=== PATIENT | female | born 1960 | race Caucasian/White ===

== ENCOUNTER 2016-07-27 07:32 | Emergency (ER) | payer BC ==
[2016-07-27 07:41] VITALS: BP 164/82
--- NOTE | 2016-07-27 08:03 | EDM.PDOC ---
ED HPI Trauma - General Chief Complaint: Upper Extremity Injury/Pain Stated Complaint: SHOULDER PAIN CHEST PAIN Time Seen by Provider: 07/27/16 07:58 Source: Reports: Patient, Family (spouse) History Limitations: Reports: No limitations - History of Present Illness INITIAL COMMENTS - FREE TEXT/NARRATIVE: 56-year-old woman presents the ED with diffuse onset of left andriy-chest pains. They are sharp and stabbing pleuritic in nature primarily felt under the breasts and in the left upper anterior shoulder upper anterior chest. No known injuries or recent falls or strains. Hurts to breathe deeply with every breath. Was in [place] last long drive. No history of blood clots in legs. No cough no sputum production. Pain in the left shoulder radiates in the medial aspect of the arm the biceps is to be should to the elbow actually down to her wrist the median nerve distribution. Pain is constant. It was present more this morning after she woke up it was because when she went to bed last night. She has fibromyalgia syndrome and takes meloxicam for trigger point relief daily. Otherwise has a history of hypertension with no recent medication changes. Symptom Onset Date: 07/27/16 Symptom Onset Time: 07:00 Occurred When: this morning Occurred Where: home Method of Injury: unknown Severity: moderate Pain/Injury Location: Reports: chest, upper extremity, left (Primarily the anterior aspect of the shoulder and then down the medial aspect or midline of her on the biceps distribution.) Associated Symptoms: Reports: no other symptoms Allergies/ADRs: Allergies Iodinated Contrast Media - Oral and Allergy (Unknown, Verified 09/24/13 01:28) UNKOWN kiwi Allergy (Verified 07/27/16 07:41) Rash shellfish derived Allergy (Verified 07/27/16 07:41) Rash Home Medications: Ambulatory Orders John. 1 tab PO DAILY 01/26/14 [Confirmed 07/27/16] Bystolic. 5 mg PO DAILY 01/26/14 [Confirmed 07/27/16] Fluoxetine. 60 mg PO DAILY 01/26/14 [Confirmed 07/27/16] Meloxicam. 15 mg PO DAILY 01/26/14 [Confirmed 07/27/16] Zyrtec. 10 mg PO DAILY 01/26/14 [Confirmed 07/27/16] Cholecalciferol (Vitamin D3) [Vitamin D] 5,000 unit PO ASDIRECTED 07/27/16 [ Confirmed 07/27/16] Doxycycline [Vibramycin] 100 mg PO Q12HR #14 cap 07/27/16 Levothyroxine 112 mcg PO ACBREAKFAST 07/27/16 [Confirmed 07/27/16] Past Medical History HEENT History: Reports: Impaired vision Other HEENT History: glasses Cardiovascular History: Reports: Hypertension Respiratory History: Reports: Asthma Musculoskeletal History: Reports: Fracture Other Musculoskeletal History: left femur Psychiatric History: Reports: Depression Endocrine/Metabolic History: Reports: Hypothyroidism - Past Surgical History Female Surgical History: Reports: Hysterectomy Social & Family History - Family History Family Medical History: Noncontributory - Tobacco Use Smoking Status *Q: Never Smoker Second Hand Smoke Exposure: No - Caffeine Use Caffeine Use: Reports: None - Alcohol Use Days Per Week of Alcohol Use: 0 - Recreational Drug Use Recreational Drug Use: No - Living Situation & Occupation Living situation: Reports: Occupation: unemployed Review of Systems - Review of Systems Review Of Systems: See Below Constitutional: Reports: no symptoms Eyes: Reports: no symptoms Ears: Reports: no symptoms Nose: Reports: no symptoms Mouth/Throat: Reports: no symptoms Respiratory: Reports: Shortness of Breath, Pleuritic Chest Pain. Denies: Wheezing, Cough, Sputum (Left upper left lower chest.), Hemoptysis, Other Cardiovascular: Reports: chest pain, lightheadedness (Is lightheaded this morning). Denies: edema (See history present), irregular heart rate GI/Abdominal: Reports: No symptoms Genitourinary: Reports: no symptoms Musculoskeletal: Reports: muscle pain (Diffuse muscle pain with multiple trigger points) Skin: Reports: no symptoms (. Has been labeled with fibromyalgia syndrome.) Neurological: Reports: No Symptoms Trauma Exam - Physical Exam Exam: See Below Exam Limited By: No limitations General Appearance: Reports: alert, WD/WN, no apparent distress Head: Reports: atraumatic, normocephalic Eyes: bilateral eye: normal inspection Throat/Mouth: Reports: Normal lips, Normal teeth, Normal gums, Normal oropharynx Neck: Reports: non-tender, full range of motion, normal alignment, normal inspection, paraspinous muscle tender (Left side.), other (Tenderness along the distribution of the left trapezius muscle trigger points identified in the upper neck and paraspinal musculature.) Respiratory Exam: Reports: no respiratory distress, lungs clear, normal breath sounds, no accessory muscle use, chest non-tender. Denies: respiratory distress , decreased breath sounds, crackles, rales, rhonchi, wheezing, stridor, pleural rub, accessory muscle use, retractions, splinting GI/Abdominal: Reports: normal bowel sounds, soft, non tender, no organomegaly, no distention Extremities: Reports: no evidence of injury, non-tender, no pedal edema, pelvis stable Neurologic: Reports: no motor/sensory deficits, oriented x 3 Skin: Reports: Normal color, Warm/dry - [place] Coma Score Best Eye Response ([place]): (4) open spontaneously Best Verbal Response (Dinesh): (5) oriented Best Motor Response (Dinesh): (6) obeys commands EKG INTERPRETATION EKG Date: 07/27/16 Time: 08:05 Rhythm: NSR Rate (beats/min): 58 [place]: normal P-wave: enlarged (Left atrial hypertrophy pattern.) QRS: other (Borderline prolonged repolarization abnormality.) ST-T: depressed (Very delayed repolarization abnormality versus ST segment depression.) QT: prolonged (Markedly prolonged at 587.) Course - Vital Signs Last Recorded V/S: Last Vital Signs Temp 36.6 C 07/27/16 07:37 Pulse 63 07/27/16 07:37 Resp 16 07/27/16 07:37 BP 164/82 H 07/27/16 07:37 Pulse Ox 96 07/27/16 07:37 - Orders/Labs/Meds Orders: Active Orders 24 hr Category Date Time Status EKG Documentation Completion [RC] STAT Care 07/27/16 07:59 Active Chest 1V Frontal [CR] Stat Exams 07/27/16 07:58 Taken Ketorolac [Toradol] Med 07/27/16 08:15 Active 30 mg IVPUSH ONETIME Sodium Chloride 0.9% [Normal Saline] 1,000 ml Med 07/27/16 08:15 Active IV ASDIRECTED Medication Orders Sodium Chloride (Normal Saline) 1,000 mls @ 100 mls/hr IV ASDIRECTED DRAKE Last Admin: 07/27/16 08:15 Dose: 100 mls/hr Ketorolac Tromethamine (Toradol) 30 mg IVPUSH ONETIME DRAKE Last Admin: 07/27/16 08:15 Dose: 30 mg Labs: Laboratory Tests 07/27/16 07/27/16 07/27/16 Range/Units 08:15 08:15 08:15 WBC 10.40 H (3.98-10.04) K/mm3 RBC 5.59 H (3.98-5.22) M/mm3 Hgb 15.2 (11.2-15.7) gm/L Hct 46.7 H (34.1-44.9) % MCV 83.5 (79.4-94.8) fl MCH 27.2 (25.6-32.2) pg MCHC 32.5 (32.2-35.5) g/dl RDW Std Deviation 44.1 (36.4-46.3) fL Plt Count 263 (182-369) K/mm3 MPV 9.9 (9.4-12.3) fl Neutrophils % (Manual) 63 H (40-60) % Band Neutrophils % 0 (0-10) % Lymphocytes % (Manual) 22 (20-40) % Atypical Lymphs % 0 % Monocytes % (Manual) 8 (2-10) % Eosinophils % (Manual) 7 H (0.7-5.8) % Basophils % (Manual) 0 L (0.1-1.2) Platelet Estimate Adequate RBC Morph Comment Normal PT 10.1 (8.0-13.0) SECONDS INR 0.93 D-Dimer, Quantitative (0.19-0.59) mg/L Sodium 141 (136-145) mEq/L Potassium 3.9 (3.5-5.1) mEq/L Chloride 105 (98-107) mEq/L Carbon Dioxide 28 (21-32) mEq/L Anion Gap 11.9 (5-15) BUN 14 (7-18) mg/dL Creatinine 0.8 (0.55-1.02) mg/dL Est Cr Clr Drug Dosing 68.61 mL/min Estimated GFR (MDRD) > 60 (>60) mL/min BUN/Creatinine Ratio 17.5 (14-18) Glucose 114 H (74-106) mg/dL Calcium 9.4 (8.5-10.1) mg/dL Total Bilirubin 0.7 (0.2-1.0) mg/dL AST 17 (15-37) U/L ALT 31 (14-59) U/L Alkaline Phosphatase 114 (46-116) U/L CK-MB (CK-2) < 0.5 (0-3.6) ng/ml Troponin I 0.018 (0.00-0.056) ng/mL C-Reactive Protein 2.9 H* (<1.0) mg/dL Total Protein 8.2 (6.4-8.2) g/dl Albumin 4.0 (3.4-5.0) g/dl Globulin 4.2 gm/dL Albumin/Globulin Ratio 1.0 (1-2) 07/27/16 Range/Units 08:15 WBC (3.98-10.04) K/mm3 RBC (3.98-5.22) M/mm3 Hgb (11.2-15.7) gm/L Hct (34.1-44.9) % MCV (79.4-94.8) fl MCH (25.6-32.2) pg MCHC (32.2-35.5) g/dl RDW Std Deviation (36.4-46.3) fL Plt Count (182-369) K/mm3 MPV (9.4-12.3) fl Neutrophils % (Manual) (40-60) % Band Neutrophils % (0-10) % Lymphocytes % (Manual) (20-40) % Atypical Lymphs % % Monocytes % (Manual) (2-10) % Eosinophils % (Manual) (0.7-5.8) % Basophils % (Manual) (0.1-1.2) Platelet Estimate RBC Morph Comment PT (8.0-13.0) SECONDS INR D-Dimer, Quantitative 0.43 (0.19-0.59) mg/L Sodium (136-145) mEq/L Potassium (3.5-5.1) mEq/L Chloride (98-107) mEq/L Carbon Dioxide (21-32) mEq/L Anion Gap (5-15) BUN (7-18) mg/dL Creatinine (0.55-1.02) mg/dL Est Cr Clr Drug Dosing mL/min Estimated GFR (MDRD) (>60) mL/min BUN/Creatinine Ratio (14-18) Glucose (74-106) mg/dL Calcium (8.5-10.1) mg/dL Total Bilirubin (0.2-1.0) mg/dL AST (15-37) U/L ALT (14-59) U/L Alkaline Phosphatase (46-116) U/L CK-MB (CK-2) (0-3.6) ng/ml Troponin I (0.00-0.056) ng/mL C-Reactive Protein (<1.0) mg/dL Total Protein (6.4-8.2) g/dl Albumin (3.4-5.0) g/dl Globulin gm/dL Albumin/Globulin Ratio (1-2) Meds: Medications Generic Name Dose Route Start Last Admin Trade Name Parrish PRN Reason Stop Dose Admin Sodium Chloride 1,000 mls @ 100 mls/hr 07/27/16 08:15 07/27/16 08:15 Normal Saline IV 100 mls/hr ASDIRECTED DRAKE Administration Ketorolac Tromethamine 30 mg 07/27/16 08:15 07/27/16 08:15 Toradol IVPUSH 30 mg ONETIME DRAKE Administration - Radiology Interpretation Free Text/Narrative:: 56-year-old female brought to the ED for evaluation of diffuse left-sided pleuritic type chest pain. Trypsin stabbing and worsens with deep deep every deep breath. No associated cough or sputum production. Pain radiates up to the left anterior shoulder medial aspect of her left arm distribution of the biceps down towards the left wrist. There is no restricted range of motion of the left shoulder it does not aggravate the pain. He is referred. Her neck has some discomfort with movement of blunt chest pain is new. Plan CBC CMP ECG chest x- ray one view D. dimer and in cardiac markers CRP to be done. - Re-Assessments/Exams Free Text/Narrative Re-Assessment/Exam: 07/27/16 09:13 chest x-ray shows infiltrates both lower lobes more of a fibrotic -type pattern. There is evidence of increased glenohumeral humeral space suggesting rotator cuff disease. Her labs reveal an elevated white count at 10.40 with 63% neutrophils no bands hemoglobin 15.2 platelets normal d-dimer was 0.43. Coags normal CRP elevated at 2.9 troponin is 0.018. Her pain is strongly pleuritic and likely viral in origin. However going to cover with antibiotic duct 6100 mg twice daily for 8 days due to the elevated CRP and white count. Departure - Departure Time of Disposition: 09:15 Disposition: Home, Self-Care 01 Condition: fair Clinical Impression: Pleurisy Prescriptions: Doxycycline [Vibramycin] 100 mg PO Q12HR #14 cap Forms: ED Department Discharge Additional Instructions: Evaluation in the emergency department today in regards to development of pleuritic left anterior chest pains both lower and upper ED and to the left arm and shoulder. X-rays suggest a viral pattern of inflammation in the lower lobes. White count however was mildly elevated at 10.40 as is the CRP at 2.9. This suggests underlying mild infective process. The blood test were negative for any heart related illness and no evidence of blood clots in the lung. D- dimer was 0.43. Treatment is suggested the anti-inflammatory Aleve 2 tablets every 8 hours or Motrin 600 mg every 6 hours to relieve in formation and pain. Suggest use of antibiotic toxic Milligrams twice daily for 7 days to prevent any pneumonia from occurring in the left lung. Expect gradual improvement over the next 5-7 days. Return to medical care sooner if any other problems occur. - My Orders Last 24 Hours: My Active Orders 07/27/16 07:58 Chest 1V Frontal [CR] Stat 07/27/16 07:59 EKG Documentation Completion [RC] STAT 07/27/16 08:15 Ketorolac [Toradol] 30 mg IVPUSH ONETIME Sodium Chloride 0.9% [Normal Saline] 1,000 ml IV ASDIRECTED - Assessment/Plan Last 24 Hours: My Active Orders 07/27/16 07:58 Chest 1V Frontal [CR] Stat 07/27/16 07:59 EKG Documentation Completion [RC] STAT 07/27/16 08:15 Ketorolac [Toradol] 30 mg IVPUSH ONETIME Sodium Chloride 0.9% [Normal Saline] 1,000 ml IV ASDIRECTED
[2016-07-27] MEDS ORDERED: Sodium Chloride 0.9% 1,000 ML IV SCH (08:15)
[2016-07-27] MEDS ORDERED: Ketorolac 30 MG/ML SDV IVPUSH SCH (08:15)
--- NOTE | 2016-07-27 09:55 | CR ---
Chest: Portable view of the chest was obtained. Comparison: No previous study. Heart size and mediastinum are within normal limits. Lungs are clear. No pleural thickening is seen. No discrete bony abnormality is identified. No pneumothorax is seen. Impression: 1. Nothing acute is identified on portable chest x-ray. Diagnostic code #1
== END 2016-07-27 09:22 | disposition home or self-care (01) ==
LOC: JD.ED 07:32
DX: R09.1 Pleurisy (principal); Z91.041 Radiographic dye allergy status; Z91.013 Allergy to seafood; Z91.018 Allergy to other foods; Z79.899 Other long term (current) drug therapy; I10 Essential (primary) hypertension; J45.909 Unspecified asthma, uncomplicated; E03.9 Hypothyroidism, unspecified; F32.9 Major depressive disorder, single episode, unspecified
CPT/HCPCS: 36415; 71010; 80053; 82553; 84484; 85025; 85379; 85610; 86140; 93005; 96361; 96374; 99284; J1885; J7040

== ENCOUNTER 2016-11-04 17:48 | Emergency (ER) | payer BC ==
[2016-11-04] MEDS ORDERED: Cephalexin 500 MG Cap PO ONE (18:28)
--- NOTE | 2016-11-04 18:34 | EDM.PDOC ---
ED HPI GENERAL MEDICAL PROBLEM - General Chief Complaint: Skin Complaint Stated Complaint: INSECT BITE L LEG Time Seen by Provider: 11/04/16 18:15 Source of Information: Reports: Patient History Limitations: Reports: No Limitations - History of Present Illness INITIAL COMMENTS - FREE TEXT/NARRATIVE: Patient is a 56-year-old female who presents to the ED complaining of a mosquito bite that has become infected located to the left lower leg proximal to the ankle. Patient states on Sunday she was out celebrating the october and suffered a few mosquito bites. States over the course of the week she' s developed increased redness that is well demarcated to the left lower leg. Redness has changed to a deeper red over the past 2 days with more pain associated to it. There is some increased warmth noted. No drainage noted. She has no history of MRSA. Denies itching the affected area. - Related Data Allergies Allergy/AdvReac Type Severity Reaction Status Date / Time Iodinated Contrast- Oral and Allergy Unknown UNKOWN Verified 11/04/16 18:18 IV Dye kiwi Allergy Rash Verified 11/04/16 18:18 shellfish derived Allergy Rash Verified 11/04/16 18:18 Home Meds: Home Meds John. 1 tab PO DAILY 01/26/14 [History] Bystolic. 5 mg PO DAILY 01/26/14 [History] Fluoxetine. 60 mg PO DAILY 01/26/14 [History] Meloxicam. 15 mg PO DAILY 01/26/14 [History] Zyrtec. 10 mg PO DAILY 01/26/14 [History] Cholecalciferol (Vitamin D3) [Vitamin D] 5,000 unit PO ASDIRECTED 07/27/16 [ History] Doxycycline [Vibramycin] 100 mg PO Q12HR #14 cap 07/27/16 [Rx] Levothyroxine 112 mcg PO ACBREAKFAST 07/27/16 [History] Cephalexin [Keflex] 500 mg PO Q6HR #28 cap 11/04/16 [Rx] Past Medical History HEENT History: Reports: Impaired Vision Other HEENT History: glasses Cardiovascular History: Reports: Hypertension Respiratory History: Reports: Asthma Musculoskeletal History: Reports: Fracture Other Musculoskeletal History: left femur Psychiatric History: Reports: Depression Endocrine/Metabolic History: Reports: Hypothyroidism - Past Surgical History Female Surgical History: Reports: Hysterectomy Social & Family History - Family History Family Medical History: Noncontributory - Tobacco Use Smoking Status *Q: Never Smoker Second Hand Smoke Exposure: No - Caffeine Use Caffeine Use: Reports: Coffee, Soda - Alcohol Use Days Per Week of Alcohol Use: 0 - Recreational Drug Use Recreational Drug Use: No - Living Situation & Occupation Living situation: Reports: Occupation: Unemployed ED ROS GENERAL - Review of Systems Review Of Systems: See Below Constitutional: Denies: Fever, Chills, Malaise, Fatigue, Decreased Appetite Respiratory: Reports: No Symptoms Cardiovascular: Reports: No Symptoms GI/Abdominal: Reports: No Symptoms Musculoskeletal: Reports: Leg Pain (left lower leg: medial aspect of lower leg proximal to the ankle. Area of redness and increased warmth. Mild pain present. ) Skin: Reports: Erythema, Lesions ED EXAM, SKIN/RASH Exam: See Below Exam Limited By: No Limitations General Appearance: Alert, WD/WN, No Apparent Distress Ears: Hearing Grossly Normal Nose: Normal Inspection Throat/Mouth: Normal Voice, No Airway Compromise Neck: Normal Inspection, Supple Respiratory/Chest: No Respiratory Distress, No Accessory Muscle Use Neurological: Alert, Oriented, CN II-XII Intact, Normal Cognition Psychiatric: Normal Affect, Normal Mood Skin: Intact, Normal Color, Other (Left lower leg proximal to the ankle: 6cm x 3 cm area of sharply demarcated redness. No open sores present. Site from previous mosquito bite. ) Course - Vital Signs Last Recorded V/S: Last Vital Signs Temp 97.8 F 11/04/16 18:15 Pulse 78 11/04/16 18:15 Resp 18 11/04/16 18:15 BP 154/73 H 11/04/16 18:15 Pulse Ox 100 11/04/16 18:15 - Orders/Labs/Meds Orders: Active Orders 24 hr Category Date Time Status Cephalexin [Keflex] Med 11/04/16 18:28 Once 500 mg PO ONETIME ONE - Re-Assessments/Exams Free Text/Narrative Re-Assessment/Exam: Ordered keflex 500mg PO. Will discharge patient home with instructions as documented. Departure - Departure Time of Disposition: 18:31 Disposition: Home, Self-Care 01 Condition: Good Clinical Impression: Mosquito bite Qualifiers: Encounter type: initial encounter Qualified Code(s): W57.XXXA - Bitten or stung by nonvenomous insect and other nonvenomous arthropods, initial encounter Cellulitis Qualifiers: Site of cellulitis: extremity Site of cellulitis of extremity: lower extremity Laterality: left Qualified Code(s): L03.116 - Cellulitis of left lower limb - Discharge Information Prescriptions: Cephalexin [Keflex] 500 mg PO Q6HR #28 cap Referrals: Estrella Rosas, [employer]OR [Primary Care Provider] - Forms: ED Department Discharge Additional Instructions: Take the full course of keflex as prescribed. Refrain from itching the site. Symptoms should improve over the next 24 to 48 hrs. Apply warm compresses to the affected area 4 times daily, 30 minutes in duration. Return to the E.D. if you develop increased redness, swelling, pain, n/v, redness streaking up your leg, or fever/chills. - My Orders Last 24 Hours: My Active Orders 11/04/16 18:28 Cephalexin [Keflex] 500 mg PO ONETIME ONE - Assessment/Plan Last 24 Hours: My Active Orders 11/04/16 18:28 Cephalexin [Keflex] 500 mg PO ONETIME ONE
[2016-11-04 18:56] VITALS: BP 139/76
== END 2016-11-04 18:50 | disposition home or self-care (01) ==
LOC: JD.ED 17:48
DX: S80.862A Insect bite (nonvenomous), left lower leg, initial encounter (principal); L03.116 Cellulitis of left lower limb; I10 Essential (primary) hypertension; J45.909 Unspecified asthma, uncomplicated; F32.9 Major depressive disorder, single episode, unspecified; E03.9 Hypothyroidism, unspecified; Z90.710 Acquired absence of both cervix and uterus; Z91.041 Radiographic dye allergy status; Z91.013 Allergy to seafood; Z91.018 Allergy to other foods; Z79.899 Other long term (current) drug therapy; W57.XXXA Bitten or stung by nonvenomous insect and other nonvenomous arthropods, initial encounter
CPT/HCPCS: 99283; A9270

== ENCOUNTER 2018-07-17 20:30 | Emergency (ER) | payer BC ==
[2018-07-17 20:59] VITALS: BP 134/74
--- NOTE | 2018-07-17 21:36 | EDM.PDOC ---
ED HPI GENERAL MEDICAL PROBLEM - General Chief Complaint: Eye Problems Stated Complaint: RIGHT EYE SORE W/GREEN MATTER Time Seen by Provider: 07/17/18 21:02 Source of Information: Reports: Patient, RN Notes Reviewed History Limitations: Reports: No Limitations - History of Present Illness INITIAL COMMENTS - FREE TEXT/NARRATIVE: The patient states that she developed right upper eyelid pain - a bruised sensation - this afternoon. She noticed a greenish discharge in her right eye this evening. Her eye does not itch. She reports that she has had sinus congestion for the past 4 days. No recent fever. The patient states that she has had "pinkeye" in the past, and that this is probably different than that. The patient states that she has been taking Mucinex to treat her sinus congestion, and that she takes Zyrtec every day to treat allergic rhinitis. The patient's PCP is Estrella Rosas. Her vaccinations are up-to-date, including an influenza vaccine this season. Right Eye Pain Score (Numeric/FACES): 2 - Related Data Allergies Allergy/AdvReac Type Severity Reaction Status Date / Time Iodinated Contrast- Oral and Allergy Unknown UNKOWN Verified 11/04/16 18:18 IV Dye kiwi Allergy Rash Verified 11/04/16 18:18 shellfish derived Allergy Rash Verified 11/04/16 18:18 Home Meds: Home Meds Cetirizine [ZyrTEC] 10 mg PO DAILY 07/17/18 [History] Diclofenac Sodium [Voltaren] 75 mg PO BID 07/17/18 [History] FLUoxetine [PROzac] 60 mg PO DAILY 07/17/18 [History] Levothyroxine 112 mcg PO DAILY 07/17/18 [History] Nebivolol [Bystolic] 5 mg PO DAILY 07/17/18 [History] amLODIPine Besylate/Benazepril [Amlodipine-Benazepril 5-20 MG] 5 - 20 mg PO DAILY 07/17/18 [History] Past Medical History HEENT History: Reports: Cataract (steroid-induced), Impaired Vision Other HEENT History: glasses Cardiovascular History: Reports: Hypertension Respiratory History: Reports: Asthma Genitourinary History: Reports: Renal Calculus Musculoskeletal History: Reports: Fracture (left femur), Osteoarthritis (knees) Psychiatric History: Reports: Depression, Other (See Below) (Fibromyalgia) Endocrine/Metabolic History: Reports: Hypothyroidism, Obesity/BMI 30+ - Past Surgical History HEENT Surgical History: Reports: Naso-Sinus Surgery, Oral Surgery (Dental implants) GI Surgical History: Reports: Appendectomy Female Surgical History: Reports: Hysterectomy (partial) Musculoskeletal Surgical History: Reports: ORIF (left femur, with hardware subsequently removed) Dermatological Surgical History: Reports: Other (See Below) (Right knee scar revision) Social & Family History - Family History Family Medical History: Noncontributory - Tobacco Use Smoking Status *Q: Never Smoker - Caffeine Use Caffeine Use: Reports: Coffee, Tea - Alcohol Use Alcohol Use History: Yes Alcohol Use Frequency: Rarely - Recreational Drug Use Recreational Drug Use: No - Living Situation & Occupation Living situation: Reports: , with Spouse 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 ED EXAM, GENERAL - Physical Exam Exam: See Below Exam Limited By: No Limitations General Appearance: Alert, WD/WN, No Apparent Distress Eye Exam: Bilateral Eye: Conjunctival Injection (Mild, Rt slightly greater than left), EOMI, Other (Small amount of greenish mucus noted at the medial aspects of both eyes) Ears: Normal External Exam, Normal Canal, Hearing Grossly Normal, Normal TMs Nose: Normal Inspection, Normal Mucosa, No Blood Throat/Mouth: Normal Inspection, Normal Lips, Normal Teeth, Normal Gums, Normal Oropharynx, Normal Voice, No Airway Compromise Head: Atraumatic, Normocephalic, Sinus Tenderness (right frontal and right maxillary), Other (No facial erythema). No: Facial Swelling Neck: Normal Inspection, Supple, Non-Tender, Full Range of Motion. No: Lymphadenopathy (L), Lymphadenopathy (R) Respiratory/Chest: No Respiratory Distress, Lungs Clear, Normal Breath Sounds, No Accessory Muscle Use Cardiovascular: Normal Peripheral Pulses, Regular Rate, Rhythm, No Gallop, No JVD, No Murmur, No Rub Peripheral Pulses: 4+: Radial (L), Radial (R) GI/Abdominal: Normal Bowel Sounds, Soft, Non-Tender, No Organomegaly, No Distention, No Abnormal Bruit, No Mass, Other (Obese) (Female) Exam: Deferred Rectal (Female) Exam: Deferred Back Exam: Normal Inspection, Full Range of Motion, NT Extremities: Normal Inspection, Normal Range of Motion, No Pedal Edema, Normal Capillary Refill Neurological: Alert, Oriented, Normal Cognition, No Motor/Sensory Deficits Psychiatric: Normal Affect Skin Exam: Warm, Dry, Intact, Normal Color, No Rash Course - Vital Signs Last Recorded V/S: Last Vital Signs Temp 36.3 C 07/17/18 20:57 Pulse 62 07/17/18 20:57 Resp 20 07/17/18 20:57 BP 134/74 07/17/18 20:57 Pulse Ox 97 07/17/18 20:57 - Re-Assessments/Exams Free Text/Narrative Re-Assessment/Exam: 07/17/18 21:32 I do not see a specific problem with the patient's right eye, rather, the patient appears to have a viral URI with sinusitis, and a small amount of nasal mucus traveling up both of the patient's nasolacrimal ducts into her eyes, causing local irritation. I am recommending [id number] oxymetazoline nasal spray as a decongestant. Departure - Departure Time of Disposition: 21:33 Disposition: Home, Self-Care 01 Condition: Good Clinical Impression: Viral URI, Irritation of both eyes - Discharge Information *PRESCRIPTION DRUG MONITORING PROGRAM REVIEWED*: Not Applicable *COPY OF PRESCRIPTION DRUG MONITORING REPORT IN PATIENT MICHELLE: Not Applicable Instructions: Upper Respiratory Infection, Adult, [id number] Referrals: Estrella Rosas BOW TACKER [Primary Care Provider] - Forms: ED Department Discharge Additional Instructions: You were seen in the emergency room for right eye pain and greenish discharge associated with 4 days of sinus congestion. Based on your history and physical examination, you are most likely suffering from a viral URI, also known as a common cold. You do not have an eye infection. Unfortunately, there are no medicines to treat a viral URI - it will have to run its course. We recommend that you purchase [id number] oxymetazoline nasal spray in a "pump mist" bottle, not a squeeze bottle. Alvin one spray of oxymetazoline up each nostril, wait 5 minutes, then spray a second spray of oxymetazoline up each nostril. Repeat every 12 hours, to a maximum of 5 days. We recommend that you discontinue taking the Mucinex, as it is been shown to be of no benefit, but does have side effects. You may continue to take Zyrtec to treat your allergic rhinitis. Follow-up with your PCP, Estrella Rosas, as needed. If any other problems, please do not hesitate to return to the ER.
== END 2018-07-17 21:43 | disposition home or self-care (01) ==
LOC: JD.ED 20:30
DX: J06.9 Acute upper respiratory infection, unspecified (principal); H57.89 Other specified disorders of eye and adnexa; I10 Essential (primary) hypertension; J45.909 Unspecified asthma, uncomplicated; E03.9 Hypothyroidism, unspecified; Z79.899 Other long term (current) drug therapy; Z91.041 Radiographic dye allergy status; Z91.018 Allergy to other foods; Z91.013 Allergy to seafood
CPT/HCPCS: 99282

== ENCOUNTER 2018-10-14 21:37 | Emergency (ER) | payer BC ==
[2018-10-14 22:00] VITALS: BP 144/88
--- NOTE | 2018-10-14 23:44 | EDM.PDOC ---
ED HPI GENERAL MEDICAL PROBLEM - General Chief Complaint: Respiratory Problem Stated Complaint: RT ARM PAIN SOB LIGHT HEADED Time Seen by Provider: 10/14/18 21:58 Source of Information: Reports: Patient, Family History Limitations: Reports: No Limitations - History of Present Illness INITIAL COMMENTS - FREE TEXT/NARRATIVE: The patient presents with right arm pain. This has been going on for about 4 days to about 1 week. She did not injure her arm in any way. She says at times it is hard to get comfortable. It will hurt in the upper arm but now it is in the lower arm. She has no neck pain. She had some shortness of breath when going up stairs today at the [employer]. She does not usually have trouble with steps. She developed no chest pain. She has no fever, chills, cough, congestion, runny nose, abdominal pain, nausea or vomiting. She has no history of heart disease. She does not smoke. Onset: Gradual Duration: Week(s): Location: Reports: Upper Extremity, Right (arm) Quality: Reports: Sharp Severity: Moderate Improves with: Reports: None Worsens with: Reports: None Associated Symptoms: Reports: Shortness of Breath (Going up the stairs tonight) . Denies: Chest Pain, Cough, Fever/Chills, Headaches, Nausea/Vomiting Right Arm Pain Score (Numeric/FACES): 4 - Related Data Allergies Allergy/AdvReac Type Severity Reaction Status Date / Time Iodinated Contrast- Oral and Allergy Unknown UNKOWN Verified 10/14/18 22:01 IV Dye kiwi Allergy Rash Verified 10/14/18 22:01 shellfish derived Allergy Rash Verified 10/14/18 22:01 Home Meds: Home Meds Cetirizine [ZyrTEC] 10 mg PO DAILY 07/17/18 [History] Diclofenac Sodium [Voltaren] 75 mg PO BID 07/17/18 [History] FLUoxetine [PROzac] 60 mg PO DAILY 07/17/18 [History] Levothyroxine 112 mcg PO DAILY 07/17/18 [History] Nebivolol [Bystolic] 5 mg PO DAILY 07/17/18 [History] amLODIPine Besylate/Benazepril [Amlodipine-Benazepril 5-20 MG] 5 - 20 mg PO DAILY 07/17/18 [History] Hydrocodone/Acetaminophen [Hydrocodon-Acetaminophen 5-325] 1 - 2 each PO Q6HR PRN #10 tablet 10/14/18 [Rx] Past Medical History HEENT History: Reports: Cataract, Impaired Vision Other HEENT History: glasses Cardiovascular History: Reports: Hypertension Respiratory History: Reports: Asthma Genitourinary History: Reports: Renal Calculus 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: Musculoskeletal History: Reports: Fracture, Osteoarthritis Other Musculoskeletal History: left femur Psychiatric History: Reports: Depression, Other (See Below) Endocrine/Metabolic History: Reports: Hypothyroidism, Obesity/BMI 30+ - Past Surgical History HEENT Surgical History: Reports: Naso-Sinus Surgery, Oral Surgery GI Surgical History: Reports: Appendectomy Female Surgical History: Reports: Hysterectomy Musculoskeletal Surgical History: Reports: ORIF Dermatological Surgical History: Reports: Other (See Below) Social & Family History - Family History Family Medical History: Noncontributory - Tobacco Use Smoking Status *Q: Never Smoker Second Hand Smoke Exposure: No - Caffeine Use Caffeine Use: Reports: Coffee - Recreational Drug Use Recreational Drug Use: No - Living Situation & Occupation Living situation: Reports: , with Spouse 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) ED ROS GENERAL - Review of Systems Review Of Systems: See Below Constitutional: Reports: No Symptoms HEENT: Reports: No Symptoms Respiratory: Reports: Shortness of Breath Cardiovascular: Reports: No Symptoms Endocrine: Reports: No Symptoms GI/Abdominal: Reports: No Symptoms : Reports: No Symptoms Musculoskeletal: Reports: Other (Right arm pain) Skin: Reports: No Symptoms ED EXAM, GENERAL - Physical Exam Exam: See Below Exam Limited By: No Limitations General Appearance: Alert, No Apparent Distress Ears: Normal External Exam Nose: Normal Inspection Head: Atraumatic, Normocephalic Neck: Normal Inspection, Supple, Non-Tender, Other (The pain in her arm is not made worse by axial loading on her head and flexion to the right) Respiratory/Chest: No Respiratory Distress, Lungs Clear, Normal Breath Sounds Cardiovascular: Regular Rate, Rhythm, No Edema, No Murmur GI/Abdominal: Soft, Non-Tender, No Organomegaly, No Mass Back Exam: Normal Inspection Extremities: Other (No pain upon palpation to her whole arm. Good sensation, strength and pulses in her right arm. She did have some tingling in her fingers with flexion at the wrist and tapping on her medial nerve.) EKG INTERPRETATION EKG Date: 10/14/18 Time: 10:25 Rhythm: NSR Rate (Beats/Min): 65 [place]: LAD-Left [place] Deviation P-Wave: Present QRS: Normal ST-T: Normal QT: Normal EKG Interpretation Comments: LVH Course - Vital Signs Last Recorded V/S: Last Vital Signs Temp 97.9 F 10/14/18 21:59 Pulse 68 10/14/18 21:59 Resp 23 H 10/14/18 21:59 BP 144/88 H 10/14/18 21:59 Pulse Ox 97 10/14/18 21:59 - Orders/Labs/Meds Orders: Active Orders 24 hr Category Date Time Status Cardiac Monitoring [RC] . DIRECTED Care 10/14/18 22:14 Active EKG Documentation Completion [RC] STAT Care 10/14/18 22:15 Active Chest 2V [CR] Stat Exams 10/14/18 22:15 Taken PRO B-TYPE NATRIUR PEPT,BNPPRO [CHEM] Stat Lab 10/14/18 22:30 Received Acetaminophen/HYDROcodone [[place] 325-5 MG] Med 10/14/18 23:55 Once 2 tab PO ONETIME ONE Labs: Laboratory Tests 10/14/18 10/14/18 Range/Units 22:30 22:30 WBC 10.18 H (3.98-10.04) K/mm3 RBC 5.04 (3.98-5.22) M/mm3 Hgb 14.2 (11.2-15.7) gm/L Hct 44.2 (34.1-44.9) % MCV 87.7 (79.4-94.8) fl MCH 28.2 (25.6-32.2) pg MCHC 32.1 L (32.2-35.5) g/dl RDW Std Deviation 46.6 H (36.4-46.3) fL Plt Count 261 (182-369) K/mm3 MPV 9.7 (9.4-12.3) fl Neut % (Auto) 59.6 (34.0-71.1) % Lymph % (Auto) 26.6 (19.3-51.7) % [place] % (Auto) 9.0 (4.7-12.5) % Eos % (Auto) 3.6 (0.7-5.8) Baso % (Auto) 0.9 (0.1-1.2) % Neut # (Auto) 6.06 (1.56-6.13) K/mm3 Lymph # (Auto) 2.71 (1.18-3.74) K/mm3 [place] # (Auto) 0.92 H (0.24-0.36) K/mm3 Eos # (Auto) 0.37 H (0.04-0.36) K/mm3 Baso # (Auto) 0.09 H (0.01-0.08) K/mm3 Sodium 140 (136-145) mEq/L Potassium 3.9 (3.5-5.1) mEq/L Chloride 102 (98-107) mEq/L Carbon Dioxide 29 (21-32) mEq/L Anion Gap 12.9 (5-15) BUN 13 (7-18) mg/dL Creatinine 1.0 (0.55-1.02) mg/dL Est Cr Clr Drug Dosing 53.60 mL/min Estimated GFR (MDRD) 57 (>60) mL/min BUN/Creatinine Ratio 13.0 L (14-18) Glucose 102 (74-106) mg/dL Calcium 9.5 (8.5-10.1) mg/dL Total Bilirubin 0.5 (0.2-1.0) mg/dL AST 23 (15-37) U/L ALT 48 (14-59) U/L Alkaline Phosphatase 114 (46-116) U/L Troponin I < 0.017 (0.00-0.056) ng/mL Total Protein 7.5 (6.4-8.2) g/dl Albumin 3.5 (3.4-5.0) g/dl Globulin 4.0 gm/dL Albumin/Globulin Ratio 0.9 L (1-2) - Re-Assessments/Exams Free Text/Narrative Re-Assessment/Exam: 10/14/18 23:45 I ordered an EKG, CXR and labs. Her EKG shows LVH but nothing acute. Her CXR shows nothing acute. Her WBC was slightly elevated at 10.18. Her CMP looks good. Her troponin is negative. 10/14/18 23:56 I am concerned the pain could be related to carpal tunnel syndrome. She had it when she was years ago. I will have her wear her splints. I will give her a dose of hydrocodone here and a prescription for more. Departure - Departure Time of Disposition: 00:05 Disposition: Home, Self-Care 01 Condition: Good Clinical Impression: Dyspnea on exertion, Right arm pain - Discharge Information *PRESCRIPTION DRUG MONITORING PROGRAM REVIEWED*: No *COPY OF PRESCRIPTION DRUG MONITORING REPORT IN PATIENT MICHELLE: No Prescriptions: Hydrocodone/Acetaminophen [Hydrocodon-Acetaminophen 5-325] 1 - 2 each PO Q6HR PRN #10 tablet PRN Reason: Pain Referrals: Estrella Rosas VACATION PLANNER [Primary Care Provider] - 1 Week Forms: ED Department Discharge Additional Instructions: Try wearing your wrist splint for a week and see if that happens. Sometime carpal tunnel can hurt up your arm. Try motrin or aleve for pain. If that does not help, try the hydrocodone. Follow up with Estrella Rosas in a week. Please return if you are worse. - My Orders Last 24 Hours: My Active Orders 10/14/18 22:14 Cardiac Monitoring [RC] . DIRECTED 10/14/18 22:15 EKG Documentation Completion [RC] STAT Chest 2V [CR] Stat 10/14/18 22:30 PRO B-TYPE NATRIUR PEPT,BNPPRO [CHEM] Stat 10/14/18 23:55 Acetaminophen/HYDROcodone [[place] 325-5 MG] 2 tab PO ONETIME ONE - Assessment/Plan Last 24 Hours: My Active Orders 10/14/18 22:14 Cardiac Monitoring [RC] . DIRECTED 10/14/18 22:15 EKG Documentation Completion [RC] STAT Chest 2V [CR] Stat 10/14/18 22:30 PRO B-TYPE NATRIUR PEPT,BNPPRO [CHEM] Stat 10/14/18 23:55 Acetaminophen/HYDROcodone [[place] 325-5 MG] 2 tab PO ONETIME ONE
[2018-10-14] MEDS ORDERED: Acetaminophen/HYDROcodone 325-5 MG Tab PO ONE (23:55)
--- NOTE | 2018-10-15 07:19 | CR ---
Chest: Two views of the chest were obtained. Comparison: Prior chest x-ray of 09/04/18. Heart size and mediastinum are within normal limits. Lung markings are mildly increased which appear fairly stable from previous exam. No acute parenchymal change is appreciated. Bony structures appear within normal limits for the patient's age. Impression: 1. Nothing acute is appreciated. No significant change from prior chest x-ray is seen. Diagnostic code #2
== END 2018-10-15 00:07 | disposition home or self-care (01) ==
LOC: JD.ED 21:37
DX: R06.00 Dyspnea, unspecified (principal); M79.601 Pain in right arm; I10 Essential (primary) hypertension; J45.909 Unspecified asthma, uncomplicated; E03.9 Hypothyroidism, unspecified; F32.9 Major depressive disorder, single episode, unspecified; Z88.8 Allergy status to other drugs, medicaments and biological substances; Z79.899 Other long term (current) drug therapy; Z91.013 Allergy to seafood
CPT/HCPCS: 36415; 71046; 80053; 83880; 84484; 85025; 93005; 99285; A9270; 93010; 99284

== ENCOUNTER 2019-10-06 06:16 | Inpatient (IN) | payer BC ==
--- NOTE | 2019-10-06 05:41 | PCM.PREANE ---
Preanesthetic Assessment - Anesthesia/Transfusion/Family Hx Anesthesia History: Prior Anesthesia Without Reaction Family History of Anesthesia Reaction: No Transfusion History: No Prior Transfusion(s) Intubation History: Unknown - Review of Systems General: No Symptoms Pulmonary: No Symptoms (asthma last used albuterol:long time GEOFFREY with CPAP not used regularly.), Cough Cardiovascular: No Symptoms (HTN), Palpitations, Dyspnea on Exertion, Edema ( none present today) Gastrointestinal: No Symptoms Neurological: No Symptoms (Vertigo- no PONV) Other: Reports: None (Decreased kidney function), Easy Bruising, Thyroid Problems (Hypothyroid), Sinus Problem (Seasonal allergies), Depression, Anxiety - Physical Assessment NPO Status Date: 10/05/19 NPO Status Time: 22:00 Vital Signs: HR:65 B/P:139/71 Resp:16 Temp:97.3 Sat:94% Height: 1.6 m Weight: 120.202 kg ASA Class: 3 Mental Status: Alert & Oriented x3 Airway Class: Mallampati = 2 Dentition: Reports: Normal Dentition, Caries Thyro-Mental Finger Breadths: 3 Mouth Opening Finger Breadths: 3 ROM/Head Extension: Full Lungs: Clear to Auscultation, Normal Respiratory Effort Cardiovascular: Regular Rate, Regular Rhythm, No Murmurs - Lab Values: Laboratory Last Values SARS Virus RNA (PCR) Negative (NEGATIVE) 10/03/19 09:39 MRSA (PCR) Negative 09/24/19 13:39 All labs reviewed and noted and within acceptable ranges to proceed with scheduled procedure. - Imaging/EKG Impressions: EKG:SR rate= 65, non specific intraventricular conduction delay, consider mild early Rwave transition supporting septal hypertrophy Echocardiogram:EF: 60-65% 11/2018 CXR:Negative - Allergies Allergies/Adverse Reactions: Allergies Allergy/AdvReac Type Severity Reaction Status Date / Time Iodinated Contrast Media Allergy Unknown Anaphylactic Verified 10/05/19 10:58 Shock iodine Allergy Anaphylactic Verified 10/05/19 10:58 Shock kiwi Allergy Rash Verified 10/05/19 10:58 shellfish derived Allergy Anaphylactic Verified 10/05/19 10:58 Shock - Anesthesia Plan Pre-Op Medication Ordered: Beta Belle, Other (Lyrica, Tylenol, Oxycodone all P.O. @0735) Beta Belle: Other (Bystolic) Med Last Dose Date: 10/06/19 Med Last Dose Time: 05:45 - Acknowledgements Anesthesia Type Planned: Spinal (Right adductor canal block under US guidance for post operative pain control requested by Dr. Vasquez.) Pt an Appropriate Candidate for the Planned Anesthesia: Yes Alternatives and Risks of Anesthesia Discussed w Pt/Guardian: Yes Pt/Guardian Understands and Agrees with Anesthesia Plan: Yes PreAnesthesia Questionnaire HEENT History: Reports: Cataract, Impaired Vision Other HEENT History: glasses Cardiovascular History: Reports: Hypertension, Other (See Below) Other Cardiovascular History: abnormal stress test, inverted T wave, swelling/ edema Respiratory History: Reports: Asthma, Sleep Apnea, SOB Gastrointestinal History: Reports: None Genitourinary History: Reports: Renal Calculus, Other (See Below) Other Genitourinary History: abnormal renal function, urinary frequency [employer]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: , Other (See Below) Other OB/BYN History: pelvic pain Musculoskeletal History: Reports: Arthritis, Fracture, Osteoarthritis, Other ( See Below) Other Musculoskeletal History: polymyalgia, shoulder pain, right hip pain, carpal tunnel syndrome, neck pain, muscle spasms Neurological History: Reports: None Psychiatric History: Reports: Depression, Other (See Below) Endocrine/Metabolic History: Reports: Hypothyroidism, Multinodular Thyroid, Obesity/BMI 30+, Vitamin D Deficiency Hematologic History: Reports: None Immunologic History: Reports: None Oncologic (Cancer) History: Reports: None Dermatologic History: Reports: None - Infectious Disease History Infectious Disease History: Reports: None - Past Surgical History Head Surgeries/Procedures: Reports: None HEENT Surgical History: Reports: Naso-Sinus Surgery, Oral Surgery Cardiovascular Surgical History: Reports: None Respiratory Surgical History: Reports: None GI Surgical History: Reports: Appendectomy, EGD Female Surgical History: Reports: Hysterectomy Male Surgical History: Reports: None Endocrine Surgical History: Reports: None Neurological Surgical History: Reports: None Musculoskeletal Surgical History: Reports: ORIF, Other (See Below) Other Musculoskeletal Surgeries/Procedures:: left femur ORIF, right knee scar revision procedure Oncologic Surgical History: Reports: None Dermatological Surgical History: Reports: Other (See Below) - SUBSTANCE USE Smoking Status *Q: Never Smoker Recreational Drug Use History: No - HOME MEDS Home Medications: Home Meds Cetirizine [ZyrTEC] 10 mg PO DAILY 07/17/18 [History] Levothyroxine 112 mcg PO DAILY 07/17/18 [History] Nebivolol [Bystolic] 5 mg PO DAILY 07/17/18 [History] Albuterol Sulfate 1 dose NEB Q4H PRN 10/05/19 [History] Albuterol [Proair HFA] 1 - 2 puff INH Q4H PRN 10/05/19 [History] Cholecalciferol (Vitamin D3) [Vitamin D3] 5,000 unit PO DAILY 10/05/19 [History] FLUoxetine HCl [Fluoxetine HCl] 60 mg PO DAILY 10/05/19 [History] Furosemide 20 mg PO DAILY 10/05/19 [History] Spironolact/Hydrochlorothiazid [Spironolactone-HCTZ 25-25] 1 tab PO DAILY [History] Umeclidinium Brm/Vilanterol Tr [Anoro Ellipta 62.5-25 MCG] 1 puff INH DAILY 11/16 [History] allopurinoL [Zyloprim] 100 mg PO DAILY 10/05/19 [History] - CURRENT (IN HOUSE) MEDS Current Meds: Current Medications Acetaminophen (Tylenol) 975 mg PO ONETIME DRAKE Stop: 10/06/19 14:00 Lactated Ringer's (Ringers, Lactated) 1,000 mls @ 125 mls/hr IV ASDIRECTED DRAKE Stop: 10/06/19 23:00 Lidocaine/Sodium Bicarbonate (Buffered Lidocaine 1% In Ns 8.4%) 0.25 ml IDERM ONETIME PRN PRN Reason: Prior to IV Start Stop: 10/06/19 18:00 Oxycodone HCl (Oxycontin) 10 mg PO ONETIME DRAKE Stop: 10/06/19 14:00 Pregabalin (Lyrica) 50 mg PO ONETIME DRAKE Stop: 10/06/19 14:00 Sodium Chloride (Saline Flush) 10 ml FLUSH ASDIRECTED PRN PRN Reason: Keep Vein Open Stop: 10/06/19 18:00 Discontinued Medications Epinephrine HCl (Adrenalin) Confirm Administered Dose 1 mg .ROUTE .STK-MED ONE Stop: 10/06/19 05:17 Ropivacaine (Naropin 0.5%) Confirm Administered Dose 30 ml .ROUTE .STK-MED ONE Stop: 10/06/19 05:17
[~2019-10-06 06:16] MED LIST: Acetaminophen 325 MG Tab PO SCH; EPINEPHrine 1 MG/ML SDV ONE; Lactated Ringers 1,000 ML IV SCH; Lidocaine 1%/Sod Bicarbonate in NS 8.4% 1 ML Syringe IDERM PRN; Pregabalin 25 MG Cap PO SCH; Ropivacaine 0.5% 5 MG/ML 30 ML SDV ONE; Sodium Chloride 0.9% 10 ML Syringe FLUSH PRN; oxyCODONE ER 10 MG TAB.ER PO SCH
[2019-10-06] MEDS ORDERED: Lidocaine 1% 6 ML ONE (06:18)
[2019-10-06] MEDS ORDERED: Ondansetron 4 MG/2 ML SDV ONE (06:18)
[2019-10-06] MEDS ORDERED: Propofol 200 MG/20 ML SDV ONE ×2 (06:18→07:52)
[2019-10-06] MEDS ORDERED: fentaNYL 100 MCG/2 ML SDV ONE (06:18)
[2019-10-06] MEDS ORDERED: ceFAZolin 1 GM Vial ONE ×2 (06:18→06:40)
[2019-10-06] MEDS ORDERED: Lactated Ringers 1,000 ML ONE ×2 (06:18→08:13)
[2019-10-06] MEDS ORDERED: Midazolam 1 MG/ML 2 ML SDV ONE (06:19)
[2019-10-06] MEDS ORDERED: Ketamine 500 mg/10 ML MDV ONE (06:19)
[2019-10-06] MEDS ORDERED: Albuterol 0.083% 2.5 MG/3 ML Neb Soln NEB PRN (06:30)
[2019-10-06] MEDS ORDERED: Cyclobenzaprine 10 MG Tab PO PRN (06:33)
[2019-10-06] MEDS ORDERED: Morphine Sulfate 8 MG, EPINEPHrine 0.3 MG, Cefuroxime 750 MG, Ketorolac 30 MG, Sodium C... PRN ×5 (06:35)
[2019-10-06] MEDS ORDERED: Naloxone 0.4 MG/ML SDV IVPUSH PRN (06:38)
[2019-10-06] MEDS ORDERED: Sennosides 8.6 MG Tab PO PRN (06:38)
[2019-10-06] MEDS ORDERED: Bisacodyl 5 MG Tab PO PRN (06:38)
[2019-10-06] MEDS ORDERED: Ondansetron 4 MG/2 ML SDV IVPUSH PRN ×2 (06:38→07:28)
[2019-10-06] MEDS ORDERED: Morphine 2 MG/ML Syringe IVPUSH PRN (06:38)
[2019-10-06] MEDS ORDERED: Vancomycin 1 GM SDV ONE (06:40)
[2019-10-06] MEDS ORDERED: ceFAZolin 2 GM in Premix Bag 1 BAG IV SCH (06:45)
[2019-10-06] MEDS ORDERED: Famotidine 20 MG Tab PO SCH (07:00)
[2019-10-06] MEDS ORDERED: diphenhydrAMINE 50 MG/ML SDV IVPUSH PRN (07:28)
[2019-10-06] MEDS ORDERED: ePHEDrine 50 MG/ML SDV IVPUSH PRN (07:28)
[2019-10-06] MEDS ORDERED: Albuterol 0.083% 2.5 MG/3 ML Neb Soln NEB ONE (07:28)
[2019-10-06] MEDS ORDERED: fentaNYL 100 MCG/2 ML SDV IVPUSH PRN (07:28)
[2019-10-06] MEDS ORDERED: Phenylephrine 1 MG in Sodium Chloride 0.9% 10 ML IV SCH (07:30)
--- NOTE | 2019-10-06 08:20 | PCM.CONS ---
H&P History of Present Illness - General Date of Service: 10/06/19 Admit Problem/Dx: Admission Diagnosis/Problem Admission Diagnosis/Problem Osteoarthritis of knee Source of Information: Patient, Old Records, Provider, RN, RN Notes Reviewed History Limitations: Reports: No Limitations - History of Present Illness Initial Comments - Free Text/Narative: Kenia Medina is a 59 yo female patient of Dr. Vasquez who is post-operative day 0 of right TKA with left knee injection. Hospital medicine was consulted for post- operative medical care of the following listed medical conditions. At this time she is resting comfortably in bed. Pain is controlled. She denies any chest pain , shortness of breath, palpitations, nausea, or vomiting. She carries a history of: HTN, Obesity, Asthma, GEOFFREY with CPAP not used regularly, Hypothyroidism, GEOFFREY , CKD, OA, fatigue, depression, goiter, vitamin D deficiency, hx/o urolithiasis , edema, increased urinary frequency, polymyalgia, carpal tunnel syndrome, muscle spasms. She was never a smoker. She is a full code. Her primary care provider is Estrella Rosas NP. Right Knee Pain Score (Numeric/FACES): 1 - Related Data Allergies/Adverse Reactions: Allergies Allergy/AdvReac Type Severity Reaction Status Date / Time Iodinated Contrast Media Allergy Unknown Anaphylactic Verified 10/06/19 11:00 Shock iodine Allergy Anaphylactic Verified 10/06/19 11:00 Shock kiwi Allergy Rash Verified 10/06/19 11:00 shellfish derived Allergy Anaphylactic Verified 10/06/19 11:00 Shock Home Medications: Home Meds Cetirizine [ZyrTEC] 10 mg PO DAILY 07/17/18 [History] Levothyroxine 112 mcg PO DAILY 07/17/18 [History] Nebivolol [Bystolic] 5 mg PO DAILY 07/17/18 [History] Albuterol Sulfate 1 dose NEB Q4H PRN 10/05/19 [History] Albuterol [Proair HFA] 1 - 2 puff INH Q4H PRN 10/05/19 [History] Cholecalciferol (Vitamin D3) [Vitamin D3] 5,000 unit PO DAILY 10/05/19 [History] FLUoxetine HCl [Fluoxetine HCl] 60 mg PO DAILY 10/05/19 [History] Furosemide 20 mg PO DAILY 10/05/19 [History] Spironolact/Hydrochlorothiazid [Spironolactone-HCTZ 25-25] 1 tab PO DAILY [History] Umeclidinium Brm/Vilanterol Tr [Anoro Ellipta 62.5-25 MCG] 1 puff INH DAILY 11/16 [History] allopurinoL [Zyloprim] 100 mg PO DAILY 10/05/19 [History] Past Medical History HEENT History: Reports: Cataract, Impaired Vision Other HEENT History: glasses Cardiovascular History: Reports: Hypertension, Other (See Below) Other Cardiovascular History: abnormal stress test, inverted T wave, swelling/ edema Respiratory History: Reports: Asthma, Sleep Apnea, SOB Gastrointestinal History: Reports: None Genitourinary History: Reports: Renal Calculus, Other (See Below) Other Genitourinary History: abnormal renal function, urinary frequency [employer] History: Reports: , Other (See Below) Other OB/BYN History: pelvic pain Musculoskeletal History: Reports: Arthritis, Fracture, Osteoarthritis, Other ( See Below) Other Musculoskeletal History: polymyalgia, shoulder pain, right hip pain, carpal tunnel syndrome, neck pain, muscle spasms Neurological History: Reports: None Psychiatric History: Reports: Depression, Other (See Below) Endocrine/Metabolic History: Reports: Hypothyroidism, Multinodular Thyroid, Obesity/BMI 30+, Vitamin D Deficiency Hematologic History: Reports: None Immunologic History: Reports: None Oncologic (Cancer) History: Reports: None Dermatologic History: Reports: None - Infectious Disease History Infectious Disease History: Reports: None - Past Surgical History Head Surgeries/Procedures: Reports: None HEENT Surgical History: Reports: Naso-Sinus Surgery, Oral Surgery Cardiovascular Surgical History: Reports: None Respiratory Surgical History: Reports: None GI Surgical History: Reports: Appendectomy, EGD Female Surgical History: Reports: Hysterectomy Male Surgical History: Reports: None Endocrine Surgical History: Reports: None Neurological Surgical History: Reports: None Musculoskeletal Surgical History: Reports: ORIF, Other (See Below) Other Musculoskeletal Surgeries/Procedures:: left femur ORIF, right knee scar revision procedure Oncologic Surgical History: Reports: None Dermatological Surgical History: Reports: Other (See Below) Social & Family History - Family History Family Medical History: Noncontributory - Tobacco Use Smoking Status *Q: Never Smoker - Caffeine Use Caffeine Use: Reports: Tea - Recreational Drug Use Recreational Drug Use: No - Living Situation & Occupation Living situation: Reports: , with Spouse 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 Denies: Fever, Chills HEENT: Reports: No Symptoms. Denies: Headaches, Sore Throat Pulmonary: Reports: No Symptoms. Denies: Shortness of Breath, Wheezing, Cough, Sputum Cardiovascular: Reports: No Symptoms. Denies: Chest Pain, Palpitations, Dyspnea on Exertion Gastrointestinal: Reports: No Symptoms. Denies: Abdominal Pain, Constipation, Diarrhea, Nausea, Vomiting Genitourinary: Reports: No Symptoms. Denies: Pain Musculoskeletal: Reports: Leg Pain Skin: Reports: No Symptoms. Denies: Cyanosis Psychiatric: Reports: No Symptoms. Denies: Confusion Neurological: Reports: Numbness, Tingling, Difficulty Walking, Gait Disturbance Hematologic/Lymphatic: Reports: No Symptoms Immunologic: Reports: No Symptoms Exam - Exam Exam: See Below - Vital Signs Vital Signs: Last Vital Signs Temp 97.3 F 10/06/19 06:20 Pulse 65 10/06/19 06:20 Resp 16 10/06/19 06:20 BP 139/71 10/06/19 06:20 Pulse Ox 94 L 10/06/19 06:20 Weight: 265 lb - Exam Quality Assessment: Supplemental Oxygen (1L), DVT Prophylaxis General: Alert, Oriented, Cooperative. No: Mild Distress HEENT: Conjunctiva Clear, EACs Clear, EOMI, Hearing Intact, Mucosa Moist & Howe , Nares Patent, Posterior Pharynx Clear, PERRLA Neck: Supple, Trachea Midline Lungs: Clear to Auscultation, Normal Respiratory Effort Cardiovascular: Regular Rate, Regular Rhythm GI/Abdominal Exam: Normal Bowel Sounds, Soft, Non-Tender, No Distention (Female) Exam: Deferred Rectal (Female) Exam: Deferred Back Exam: Normal Inspection, Full Range of Motion Extremities: Normal Capillary Refill, Leg Pain, Limited Range of Motion, Other ( Bandage in place on right leg. Bandage is dry and intact. Cooling pack in place. ) Peripheral Pulses: 2+: Radial (L), Radial (R), Dorsalis Pedis (L), Dorsalis Pedis (R) Skin: Warm, Dry, Intact Neurological: Cranial Nerves Intact (Grossly ) Neuro Extensive - Mental Status: Alert, Oriented x3, Normal Mood/Affect Sepsis Event Note - Focused Exam Vital Signs: Vital Signs Temp Pulse Resp BP Pulse Ox 10/06/19 06:20 97.3 F 65 16 139/71 94 L Date Exam was Performed: 10/06/19 Time Exam was Performed: 14:23 Consult PN Assessment/Plan POD#: 0 Procedures: Procedures ANTINUCLEAR ANTIBODIES (12/08/13) ASSAY OF BLOOD LIPOPROTEIN (09/28/14) ASSAY OF BLOOD/URIC ACID (12/17/15) ASSAY OF FOLIC ACID SERUM (12/17/15) ASSAY OF FREE THYROXINE (09/07/14) ASSAY OF LIPOPROTEIN (09/28/14) ASSAY OF NATRIURETIC PEPTIDE (10/14/18) ASSAY OF PHOSPHORUS (04/16/19) ASSAY OF PREALBUMIN (09/29/19) ASSAY OF PROTEIN URINE (04/16/19) ASSAY OF TROPONIN QUANT (10/14/18) ASSAY OF URINE CREATININE (04/16/19) ASSAY THYROID STIM HORMONE (09/29/19) C-REACTIVE PROTEIN (07/27/16) C-REACTIVE PROTEIN HS (12/08/13) CARDIOVASCULAR STRESS TEST (12/16/18) CHEST X-RAY 1 VIEW FRONTAL (07/27/16) COMP SCREEN MAMMOGRAM ADD-ON (09/22/14) COMPLETE CBC AUTOMATED (04/16/19) COMPLETE CBC W/AUTO DIFF WBC (09/29/19) COMPREHEN METABOLIC PANEL (09/29/19) CREATINE MB FRACTION (07/27/16) CT HEAD/BRAIN W/O DYE (01/26/14) ECG MONIT/REPRT UP TO 48 HRS (08/01/13) ELECTROCARDIOGRAM TRACING (10/14/18) EMERGENCY DEPT VISIT (10/14/18) EMERGENCY DEPT VISIT (07/17/18) EMERGENCY DEPT VISIT (11/04/16) EMERGENCY DEPT VISIT (07/27/16) EMERGENCY DEPT VISIT (03/26/16) EMERGENCY DEPT VISIT (01/26/14) EXTREMITY STUDY (02/07/16) FIBRIN DEGRADATION QUANT (07/27/16) GLYCOSYLATED HEMOGLOBIN TEST (09/28/14) HT MUSCLE IMAGE SPECT MULT (12/16/18) HYDRATE IV INFUSION ADD-ON (07/27/16) LIPID PANEL (01/18/18) MEASURE BLOOD OXYGEN LEVEL (11/19/13) METABOLIC PANEL TOTAL CA (04/16/19) MR-STAPH DNA AMP PROBE (01/28/19) OCCULT BLOOD FECES (09/30/14) POLYSOM 6/>YRS CPAP 4/> PARM (09/23/13) PROTHROMBIN TIME (09/29/19) RBC SED RATE AUTOMATED (12/17/15) RHEUMATOID FACTOR TEST QUAL (12/17/15) ROUTINE VENIPUNCTURE (09/29/19) THER/PROPH/DIAG INJ IV PUSH (07/27/16) THROMBOPLASTIN TIME PARTIAL (09/29/19) TTE W/DOPPLER COMPLETE (12/16/18) UR ALBUMIN QUANTITATIVE (09/28/14) URINALYSIS AUTO W/O SCOPE (09/29/19) URINALYSIS AUTO W/SCOPE (04/16/19) US EXAM ABDO BACK WALL COMP (03/10/19) US EXAM OF HEAD AND NECK (12/13/15) VIT D 1 25-DIHYDROXY (12/17/15) VITAMIN B-12 (12/17/15) VITAMIN D 25 HYDROXY (04/17/16) X-RAY EXAM CHEST 2 VIEWS (09/29/19) X-RAY EXAM HIP UNI 1 VIEW (11/29/17) X-RAY EXAM L-S SPINE 2/3 VWS (11/29/17) X-RAY EXAM NECK SPINE 2-3 VW (09/04/17) X-RAY EXAM OF FOOT (10/17/16) X-RAY EXAM OF SHOULDER (09/04/17) X-RAY EXAM OF WRIST (03/26/16) (1) S/P total knee arthroplasty SNOMED Code(s): 7524515663755, 853549846, 8506694954171 Code(s): Z96.659 - PRESENCE OF UNSPECIFIED ARTIFICIAL KNEE JOINT Priority: High Current Visit: Yes Qualifiers: Laterality: right Qualified Code(s): Z96.651 - Presence of right artificial knee joint (2) Osteoarthritis SNOMED Code(s): 173999931 Code(s): M19.90 - UNSPECIFIED OSTEOARTHRITIS, UNSPECIFIED SITE Priority: High Current Visit: Yes Qualifiers: Osteoarthritis location: knee Osteoarthritis type: primary Laterality: bilateral Qualified Code(s): M17.0 - Bilateral primary osteoarthritis of knee (3) HTN (hypertension) SNOMED Code(s): 62053835 Code(s): I10 - ESSENTIAL (PRIMARY) HYPERTENSION Priority: Medium Current Visit: No Qualifiers: Hypertension type: unspecified Qualified Code(s): I10 - Essential (primary ) hypertension (4) Obesity SNOMED Code(s): 255860289, 573986425 Code(s): E66.9 - OBESITY, UNSPECIFIED Priority: Medium Current Visit: Yes Qualifiers: Obesity type: unspecified obesity type Obesity classification: adult class 3 (BMI >= 40) Serious obesity comorbidity presence: unspecified whether serious comorbidity present Body mass index: BMI 45.0-49.9 Qualified Code(s) : E66.01 - Morbid (severe) obesity due to excess calories; Z68.42 - Body mass index (BMI) 45.0-49.9, adult (5) Asthma SNOMED Code(s): 555321787 Code(s): J45.909 - UNSPECIFIED ASTHMA, UNCOMPLICATED Priority: Medium Current Visit: No Qualifiers: Asthma severity: unspecified severity Asthma persistence: unspecified Asthma complication type: unspecified Qualified Code(s): J45.909 - Unspecified asthma, uncomplicated (6) GEOFFREY (obstructive sleep apnea) SNOMED Code(s): 03682237 Code(s): G47.33 - OBSTRUCTIVE SLEEP APNEA (ADULT) (PEDIATRIC) Priority: Medium Current Visit: No (7) Hypothyroidism SNOMED Code(s): 13370333 Code(s): E03.9 - HYPOTHYROIDISM, UNSPECIFIED Priority: Low Current Visit : No Qualifiers: Hypothyroidism type: unspecified Qualified Code(s): E03.9 - Hypothyroidism , unspecified (8) CKD (chronic kidney disease) SNOMED Code(s): 769761056 Code(s): N18.9 - CHRONIC KIDNEY DISEASE, UNSPECIFIED Priority: Medium Current Visit: No Qualifiers: Chronic kidney disease stage: unspecified stage Qualified Code(s): N18.9 - Chronic kidney disease, unspecified (9) Fatigue SNOMED Code(s): 36470108 Code(s): R53.83 - OTHER FATIGUE Priority: Low Current Visit: No Qualifiers: Fatigue type: unspecified Qualified Code(s): R53.83 - Other fatigue (10) Depression SNOMED Code(s): 13111952 Code(s): F32.9 - MAJOR DEPRESSIVE DISORDER, SINGLE EPISODE, UNSPECIFIED Priority: Low Current Visit: No Qualifiers: Depression Type: other depression Qualified Code(s): F32.89 - Other specified depressive episodes (11) Goiter SNOMED Code(s): 2687529 Code(s): E04.9 - NONTOXIC GOITER, UNSPECIFIED Priority: Low Current Visit : No (12) History of polymyalgia rheumatica SNOMED Code(s): 302445899 Code(s): Z87.39 - PERSONAL HISTORY OF DISEASES OF THE MS SYS AND CONN TISS Priority: Low Current Visit: No (13) Vitamin A deficiency SNOMED Code(s): 43069730 Code(s): E50.9 - VITAMIN A DEFICIENCY, UNSPECIFIED Priority: Low Current Visit: No (14) Urolithiasis SNOMED Code(s): 19243173, 114279793 Code(s): N20.9 - URINARY CALCULUS, UNSPECIFIED Priority: Low Current Visit: No Qualifiers: Urinary calculus location: other lower urinary tract location Qualified Code(s): N21.8 - Other lower urinary tract calculus (15) Carpal tunnel syndrome SNOMED Code(s): 28017952 Code(s): G56.00 - CARPAL TUNNEL SYNDROME, UNSPECIFIED UPPER LIMB Priority: Low Current Visit: No Qualifiers: Laterality: unspecified laterality Qualified Code(s): G56.00 - Carpal tunnel syndrome, unspecified upper limb (16) Muscle spasm SNOMED Code(s): 37673464 Code(s): M62.838 - OTHER MUSCLE SPASM Priority: Low Current Visit: No Problem List Initiated/Reviewed/Updated: Yes Plan: I/P: Acute: S/P right total knee arthroplasty - post-operative day 0 -DVT prophylaxis and pain management per primary care team -PT/OT -IS/RT -Monitor oxygen saturation -Titrate oxygen as needed -Home medications reviewed -Vital signs stable -Monitor labs -Pre-operative Hgb was 14.2 -Pre-operative GFR was 36 -Pre-operative creatinine was 1.5 -Pre-operative WBC was 11.2 -Pre-operative 12-lead showed a sinus rhythm with non-specific intraventricular conduction delay Osteoarthritis of bilateral knees -Pain management per primary care team S/P Left knee cortisone injection -Management per primary team Chronic: HTN Obesity Asthma GEOFFREY with CPAP not used regularly Hypothyroidism GEOFFREY CKD OA fatigue depression goiter vitamin D deficiency hx/o urolithiasis edema increased urinary frequency polymyalgia carpal tunnel syndrome muscle spasms Plan: CM for discharge planning GI prophylaxis Home medications as indicated Other orders as listed above Routine AM labs She is a full code. Her PCP is Estrella Rosas NP. Thank you for allowing us to participate in the care of this patient!! Requesting Provider: Dr. Vasquez Date Consult Requested: 10/06/19 Patient History Reviewed: Yes Admission H&P Reviewed: Yes Notified Requestor: Yes
[2019-10-06] MEDS: Bupivacaine 0.25% 10 ML SDV ONE ×3 (08:25→08:52)
--- NOTE | 2019-10-06 08:29 | PCM.SN.2 ---
- Free Text/Narrative Note: Time Out: 908 Start: 909 Stop: Procedure: Right Adductor Canal Block under US guidance for postoperative pain control requested by Dr. Vasquez. Chart reviewed, allergies noted, consent signed, and monitors/alarms on and operating. Right upper leg prepped times two chloropreps. Under sterile technique and US guidance right femoral nerve located in right adductor canal. Right femoral artery and vein also located. 4 inch 21 guage stimuplex needle guided under US and 25mls of 0.5%ropivacaine with 1:200,000 epi placed incrementally with negative aspirations noted with each injection. Patient tolerated procedure well. Thank you! Teodora Walker CRNA
[2019-10-06] MEDS: Triamcinolone Acetonide 40 MG/ML 1 ML MDV ONE ×3 (08:30→08:52)
--- NOTE | 2019-10-06 09:07 | PCM.POSTAN ---
POST ANESTHESIA ASSESSMENT - MENTAL STATUS Mental Status: Alert - VITAL SIGNS Vital Signs: Last Vital Signs Temp 98.1 10/06/19 09:01 Pulse 65 10/06/19 09:01 Resp 14 10/06/19 09:01 BP 117/52 10/06/19 09:01 Pulse Ox 95 10/06/19 09:01 - RESPIRATORY Respiratory Status: Respiratory Rate WNL, Airway Patent, O2 Saturation Stable, Supplemental Oxygen - CARDIOVASCULAR CV Status: Pulse Rate WNL, Blood Pressure Stable - GASTROINTESTINAL GI Status: No Symptoms - POST OP HYDRATION Hydration Status: Adequate & Stable
--- NOTE | 2019-10-06 09:45 | CR ---
Right knee: AP and lateral views of the right knee were obtained. Comparison: Previous right knee not available. Findings: Knee prosthesis is seen. Components are aligned. Soft tissue are noted from the surgical procedure. Underlying bony structures are intact. Impression: 1. Satisfactory postop radiographic appearance of recently placed right knee prosthesis. Diagnostic code #2 This report was dictated in MDT
[2019-10-06] MEDS ORDERED: ALBUTEROL INH PRN (10:11)
[2019-10-06] MEDS ORDERED: Albuterol 0.021% 0.63 MG/3 ML Neb Soln NEB PRN (10:11)
[2019-10-06] MEDS: Acetaminophen/oxyCODONE 325-5 MG Tab PO PRN ×3 (11:41→21:31)
[2019-10-06] MEDS: ceFAZolin 1 GM in Premix Bag 1 BAG IV SCH ×2 (15:16→22:50)
[2019-10-06] MEDS: ceFAZolin 2 GM in Premix Bag 1 BAG IV SCH ×2 (15:16→22:51)
[2019-10-06] MEDS: Docusate Sodium 100 MG Cap PO SCH (21:31)
[2019-10-06] MEDS: Famotidine 20 MG Tab PO SCH (21:31)
[2019-10-07] MEDS ORDERED: Levothyroxine 112 MCG Tab PO SCH (06:00)
[2019-10-07] MEDS: ceFAZolin 2 GM in Premix Bag 1 BAG IV SCH (06:20)
[2019-10-07] MEDS: ceFAZolin 1 GM in Premix Bag 1 BAG IV SCH (06:20)
[2019-10-07] MEDS: Acetaminophen/oxyCODONE 325-5 MG Tab PO PRN ×2 (07:06→11:01)
--- NOTE | 2019-10-07 08:01 | PCM.CONSN ---
- General Info Date of Service: 10/07/19 Admission Dx/Problem (Free Text): Admission Diagnosis/Problem Admission Diagnosis/Problem Osteoarthritis of knee Functional Status: Reports: Pain Controlled, Tolerating Diet, Ambulating, Urinating, Incentive Spirometry. Denies: New Symptoms - Review of Systems General: Reports: No Symptoms. Denies: Fever, Chills HEENT: Reports: No Symptoms. Denies: Headaches, Sore Throat Pulmonary: Reports: No Symptoms. Denies: Shortness of Breath, Cough, Sputum, Wheezing Cardiovascular: Reports: No Symptoms. Denies: Chest Pain, Palpitations Gastrointestinal: Reports: No Symptoms. Denies: Abdominal Pain, Constipation, Diarrhea, Nausea, Vomiting Genitourinary: Reports: No Symptoms. Denies: Pain Musculoskeletal: Reports: Leg Pain Skin: Reports: No Symptoms. Denies: Cyanosis Neurological: Reports: Difficulty Walking, Gait Disturbance. Denies: Confusion Psychiatric: Reports: No Symptoms - Patient Data Vitals - Most Recent: Last Vital Signs Temp 97.9 F 10/07/19 04:01 Pulse 57 L 10/07/19 04:01 Resp 18 10/07/19 04:01 BP 114/62 10/07/19 04:01 Pulse Ox 90 L 10/07/19 04:01 Weight - Most Recent: 275 lb 12.8 oz I&O - Last 24 Hours: Intake & Output 10/06/19 10/07/19 10/07/19 22:59 06:59 14:59 Intake Total 220 900 Output Total 400 Balance 220 500 Lab Results Last 24 Hours: Laboratory Results - last 24 hr 10/07/19 10/07/19 Range/Units 05:31 05:31 WBC 14.76 H (3.98-10.04) K/mm3 RBC 4.41 (3.98-5.22) M/mm3 Hgb 12.0 D (11.2-15.7) gm/dl Hct 37.3 (34.1-44.9) % MCV 84.6 (79.4-94.8) fl MCH 27.2 (25.6-32.2) pg MCHC 32.2 (32.2-35.5) g/dl RDW Std Deviation 45.1 (36.4-46.3) fL Plt Count 281 (182-369) K/mm3 MPV 10.0 (9.4-12.3) fl Sodium 137 (136-145) mEq/L Potassium 3.9 (3.5-5.1) mEq/L Chloride 102 (98-107) mEq/L Carbon Dioxide 27 (21-32) mEq/L Anion Gap 11.9 (5-15) BUN 33 H (7-18) mg/dL Creatinine 1.4 H (0.55-1.02) mg/dL Est Cr Clr Drug Dosing 37.82 mL/min Estimated GFR (MDRD) 39 (>60) mL/min BUN/Creatinine Ratio 23.6 H (14-18) Glucose 153 H (74-106) mg/dL Calcium 9.3 (8.5-10.1) mg/dL Total Bilirubin 0.4 (0.2-1.0) mg/dL AST 16 (15-37) U/L ALT 20 (14-59) U/L Alkaline Phosphatase 85 (46-116) U/L Total Protein 7.0 (6.4-8.2) g/dl Albumin 2.8 L (3.4-5.0) g/dl Globulin 4.2 gm/dL Albumin/Globulin Ratio 0.7 L (1-2) Med Orders - Current: Current Medications Albuterol (Proventil Neb Soln) 0.63 mg NEB Q4H PRN PRN Reason: Shortness of Breath Allopurinol (Zyloprim) 100 mg PO DAILY [facility] Aspirin (Ecotrin) 325 mg PO BID [facility] Bisacodyl (Dulcolax) 5 mg PO DAILY PRN PRN Reason: Constipation Carvedilol (Coreg) 3.125 mg PO BID [facility] Cholecalciferol (Vitamin D3) 5,000 unit PO DAILY [facility] Cyclobenzaprine HCl (Flexeril) 10 mg PO TID PRN PRN Reason: Spasms Docusate Sodium (Colace) 100 mg PO BID [facility] Last Admin: 10/06/19 21:31 Dose: 100 mg Famotidine (Pepcid) 20 mg PO Q12H [facility] Last Admin: 10/06/19 21:31 Dose: 20 mg Fluoxetine HCl (Prozac) 60 mg PO DAILY [facility] Levothyroxine Sodium (Levothyroxine) 112 mcg PO ACBREAKFAST [facility] Last Admin: 10/07/19 06:17 Dose: 112 mcg Loratadine (Claritin) 10 mg PO DAILY [facility] Morphine Sulfate (Morphine) 2 mg IVPUSH Q2H PRN PRN Reason: Breakthrough Pain Naloxone HCl (Narcan) 0.1 mg IVPUSH Q5M PRN PRN Reason: Oversedation Ondansetron HCl (Zofran) 4 mg IVPUSH Q6H PRN PRN Reason: Nausea/Vomiting Oxycodone/Acetaminophen (Percocet 325-5 Mg) 1 - 2 tab PO Q4H PRN PRN Reason: Pain Last Admin: 10/07/19 07:06 Dose: 2 tab Anoro Ellipta 62.5- (25 Mcg Ptom) 0 each INH DAILY [facility] Senna (Senna) 8.6 mg PO BID PRN PRN Reason: Constipation Discontinued Medications Acetaminophen (Tylenol) 975 mg PO ONETIME DRAKE Stop: 10/06/19 14:00 Last Admin: 10/06/19 06:34 Dose: 975 mg Albuterol (Proventil Neb Soln) 2.5 mg NEB ONETIME PRN PRN Reason: bronchodilation Last Admin: 10/06/19 06:54 Dose: 2.5 mg Albuterol (Proventil Neb Soln) 2.5 mg NEB ONETIME ONE Stop: 10/06/19 07:29 Last Admin: 10/06/19 10:53 Dose: Not Given Bupivacaine HCl (Sensorcaine-Mpf 0.25%) Confirm Administered Dose 40 ml .ROUTE .STK-MED ONE Stop: 10/06/19 06:41 Last Admin: 10/06/19 08:52 Dose: 4 ml Cefazolin Sodium (Ancef) Confirm Administered Dose 3 gm .ROUTE .STK-MED ONE Stop: 10/06/19 06:19 Cefazolin Sodium (Ancef) Confirm Administered Dose 2 gm .ROUTE .STK-MED ONE Stop: 10/06/19 06:41 Last Admin: 10/06/19 08:21 Dose: 2 gm Morphine Sulfate 8 mg/Epinephrine HCl 0.3 mg/Cefuroxime Sodium 750 mg/Ketorolac Tromethamine 30 mg/Sodium Chloride 7.9 ml 0 mg .XX ASDIRECTED PRN PRN Reason: Pain Stop: 10/06/19 12:00 Last Admin: 10/06/19 08:25 Dose: 788.3 mg Diphenhydramine HCl (Benadryl) 25 mg IVPUSH Q6H PRN PRN Reason: pruritis Stop: 10/06/19 12:00 Ephedrine Sulfate (Ephedrine Sulfate) 5 mg IVPUSH ASDIRECTED PRN PRN Reason: Hypotension Stop: 10/06/19 12:00 Epinephrine HCl (Adrenalin) Confirm Administered Dose 1 mg .ROUTE .STK-MED ONE Stop: 10/06/19 05:17 Famotidine (Pepcid) 20 mg PO Q12H [facility] Last Admin: 10/06/19 14:29 Dose: Not Given Fentanyl (Sublimaze) Confirm Administered Dose 100 mcg .ROUTE .STK-MED ONE Stop: 10/06/19 06:19 Fentanyl (Sublimaze) 50 mcg IVPUSH Q5M PRN PRN Reason: Pain Stop: 10/06/19 12:00 Lactated Ringer's (Ringers, Lactated) 1,000 mls @ 125 mls/hr IV ASDIRECTED [facility] Stop: 10/06/19 23:00 Last Admin: 10/06/19 07:30 Dose: 125 mls/hr Lidocaine HCl (Xylocaine-Mpf 1%) Confirm Administered Dose 6 mls @ as directed .ROUTE .STK-MED ONE Stop: 10/06/19 06:19 Lactated Ringer's (Ringers, Lactated) Confirm Administered Dose 1,000 mls @ as directed .ROUTE .STK-MED ONE Stop: 10/06/19 06:19 Cefazolin Sodium/Dextrose 2 gm (/ Premix) 50 mls @ 100 mls/hr IV Q8H [facility] Stop: 10/06/19 23:14 Last Admin: 10/06/19 14:29 Dose: Not Given Cefazolin Sodium/Dextrose 2 gm (/ Premix) 50 mls @ 66.667 mls/hr IV Q8H [facility] Stop: 10/07/19 07:29 Last Admin: 10/07/19 06:20 Dose: 66.667 mls/hr Cefazolin Sodium/Dextrose 1 gm (/ Premix) 50 mls @ 100 mls/hr IV Q8H [facility] Stop: 10/07/19 07:14 Last Admin: 10/07/19 06:20 Dose: 100 mls/hr Phenylephrine HCl 1 mg/ Sodium (Chloride) 10.1 mls @ 1 mls/sec IV TITRATE DRAKE; Protocol Stop: 10/06/19 12:00 Lactated Ringer's (Ringers, Lactated) Confirm Administered Dose 1,000 mls @ as directed .ROUTE .STK-MED ONE Stop: 10/06/19 08:14 Cefazolin Sodium/Dextrose (Ancef) Confirm Administered Dose 50 mls @ as directed .ROUTE .STK-MED ONE Stop: 10/06/19 13:19 Last Admin: 10/06/19 14:27 Dose: Not Given Ketamine HCl (Ketalar) Confirm Administered Dose 500 mg .ROUTE .STK-MED ONE Stop: 10/06/19 06:20 Lidocaine/Sodium Bicarbonate (Buffered Lidocaine 1% In Ns 8.4%) 0.25 ml IDERM ONETIME PRN PRN Reason: Prior to IV Start Stop: 10/06/19 18:00 Last Admin: 10/06/19 07:30 Dose: 0.25 ml Midazolam HCl (Versed 1 Mg/Ml) Confirm Administered Dose 2 mg .ROUTE .STK-MED ONE Stop: 10/06/19 06:20 Miscellaneous Medication (Phenylephrine 1 Mg/10 Ml-Ns) Confirm Administered Dose 1 mg IV .STK-MED ONE Stop: 10/06/19 06:19 Non-Formulary Medication (Albuterol [Proair Hfa]) 1 - 2 puff INH Q4H PRN PRN Reason: Shortness of Breath Ondansetron HCl (Zofran) Confirm Administered Dose 4 mg .ROUTE .STK-MED ONE Stop: 10/06/19 06:19 Ondansetron HCl (Zofran) 4 mg IVPUSH ONETIME PRN PRN Reason: Nausea/Vomiting Oxycodone HCl (Oxycontin) 10 mg PO ONETIME DRAKE Stop: 10/06/19 14:00 Last Admin: 10/06/19 06:33 Dose: 10 mg Pregabalin (Lyrica) 50 mg PO ONETIME DRAKE Stop: 10/06/19 14:00 Last Admin: 10/06/19 06:32 Dose: 50 mg Propofol (Diprivan 20 Ml) Confirm Administered Dose 400 mg .ROUTE .STK-MED ONE Stop: 10/06/19 06:19 Propofol (Diprivan 20 Ml) Confirm Administered Dose 200 mg .ROUTE .STK-MED ONE Stop: 10/06/19 07:53 Ropivacaine (Naropin 0.5%) Confirm Administered Dose 30 ml .ROUTE .STK-MED ONE Stop: 10/06/19 05:17 Sodium Chloride (Saline Flush) 10 ml FLUSH ASDIRECTED PRN PRN Reason: Keep Vein Open Stop: 10/06/19 18:00 Tranexamic Acid (Cyklokapron) Confirm Administered Dose 1,000 mg .ROUTE .STK- MED ONE Stop: 10/06/19 06:40 Triamcinolone Acetonide (Kenalog-40) Confirm Administered Dose 80 mg .ROUTE .STK -MED ONE Stop: 10/06/19 06:41 Last Admin: 10/06/19 08:52 Dose: 80 mg Vancomycin HCl (Vancomycin) Confirm Administered Dose 1 gm .ROUTE .STK-MED ONE Stop: 10/06/19 06:41 Last Admin: 10/06/19 08:30 Dose: 1 gm - Exam Quality Assessment: DVT Prophylaxis. No: Supplemental Oxygen General: Alert, Oriented, Cooperative, No Acute Distress HEENT: Pupils Equal, Pupils Reactive, Mucous Membr. Moist/[place] Neck: Supple, Trachea Midline Lungs: Clear to Auscultation, Normal Respiratory Effort Cardiovascular: Regular Rate, Regular Rhythm GI/Abdominal Exam: Normal Bowel Sounds, Soft, Non-Tender, No Distention (Female) Exam: Deferred Back Exam: Normal Inspection, Full Range of Motion Extremities: Normal Capillary Refill, Leg Pain, Limited Range of Motion, Other ( Bandage in place on right leg. Cooling pack in place. ) Peripheral Pulses: 2+: Radial (L), Radial (R), Dorsalis Pedis (L), Dorsalis Pedis (R) Skin: Warm, Dry, Intact Wound/Incisions: Dressing Dry and Intact Neurological: No New Focal Deficit Psy/Mental Status: Alert, Normal Affect, Normal Mood Sepsis Event Note - Evaluation Sepsis Screening Result: No Definite Risk - Focused Exam Vital Signs: Vital Signs Temp Pulse Resp BP Pulse Ox 10/07/19 04:01 97.9 F 57 L 18 114/62 90 L 10/06/19 23:37 97.9 F 56 L 19 94/54 L 90 L 10/06/19 21:42 57 L 93 L 10/06/19 21:29 113/70 10/06/19 21:19 70 93 L 06/08/20 21:01 97.7 F 53 L 16 98/62 90 L Date Exam was Performed: 10/07/19 Time Exam was Performed: 07:59 Consult PN Assessment/Plan POD#: 1 Procedures: Procedures ANTINUCLEAR ANTIBODIES (12/08/13) ASSAY OF BLOOD LIPOPROTEIN (09/28/14) ASSAY OF BLOOD/URIC ACID (12/17/15) ASSAY OF FOLIC ACID SERUM (12/17/15) ASSAY OF FREE THYROXINE (09/07/14) ASSAY OF LIPOPROTEIN (09/28/14) ASSAY OF NATRIURETIC PEPTIDE (10/14/18) ASSAY OF PHOSPHORUS (04/16/19) ASSAY OF PREALBUMIN (09/29/19) ASSAY OF PROTEIN URINE (04/16/19) ASSAY OF TROPONIN QUANT (10/14/18) ASSAY OF URINE CREATININE (04/16/19) ASSAY THYROID STIM HORMONE (09/29/19) C-REACTIVE PROTEIN (07/27/16) C-REACTIVE PROTEIN HS (12/08/13) CARDIOVASCULAR STRESS TEST (12/16/18) CHEST X-RAY 1 VIEW FRONTAL (07/27/16) COMP SCREEN MAMMOGRAM ADD-ON (09/22/14) COMPLETE CBC AUTOMATED (04/16/19) COMPLETE CBC W/AUTO DIFF WBC (09/29/19) COMPREHEN METABOLIC PANEL (09/29/19) CREATINE MB FRACTION (07/27/16) CT HEAD/BRAIN W/O DYE (01/26/14) ECG MONIT/REPRT UP TO 48 HRS (08/01/13) ELECTROCARDIOGRAM TRACING (10/14/18) EMERGENCY DEPT VISIT (10/14/18) EMERGENCY DEPT VISIT (07/17/18) EMERGENCY DEPT VISIT (11/04/16) EMERGENCY DEPT VISIT (07/27/16) EMERGENCY DEPT VISIT (03/26/16) EMERGENCY DEPT VISIT (01/26/14) EXTREMITY STUDY (02/07/16) FIBRIN DEGRADATION QUANT (07/27/16) GLYCOSYLATED HEMOGLOBIN TEST (09/28/14) HT MUSCLE IMAGE SPECT MULT (12/16/18) HYDRATE IV INFUSION ADD-ON (07/27/16) LIPID PANEL (01/18/18) MEASURE BLOOD OXYGEN LEVEL (11/19/13) METABOLIC PANEL TOTAL CA (04/16/19) MR-STAPH DNA AMP PROBE (01/28/19) OCCULT BLOOD FECES (09/30/14) POLYSOM 6/>YRS CPAP 4/> PARM (09/23/13) PROTHROMBIN TIME (09/29/19) RBC SED RATE AUTOMATED (12/17/15) RHEUMATOID FACTOR TEST QUAL (12/17/15) ROUTINE VENIPUNCTURE (09/29/19) THER/PROPH/DIAG INJ IV PUSH (07/27/16) THROMBOPLASTIN TIME PARTIAL (09/29/19) TTE W/DOPPLER COMPLETE (12/16/18) UR ALBUMIN QUANTITATIVE (09/28/14) URINALYSIS AUTO W/O SCOPE (09/29/19) URINALYSIS AUTO W/SCOPE (04/16/19) US EXAM ABDO BACK WALL COMP (03/10/19) US EXAM OF HEAD AND NECK (12/13/15) VIT D 1 25-DIHYDROXY (12/17/15) VITAMIN B-12 (12/17/15) VITAMIN D 25 HYDROXY (04/17/16) X-RAY EXAM CHEST 2 VIEWS (09/29/19) X-RAY EXAM HIP UNI 1 VIEW (11/29/17) X-RAY EXAM L-S SPINE 2/3 VWS (11/29/17) X-RAY EXAM NECK SPINE 2-3 VW (09/04/17) X-RAY EXAM OF FOOT (10/17/16) X-RAY EXAM OF SHOULDER (09/04/17) X-RAY EXAM OF WRIST (03/26/16) (1) S/P total knee arthroplasty SNOMED Code(s): 5066586323116, 112500982, 1349831499963 Code(s): Z96.659 - PRESENCE OF UNSPECIFIED ARTIFICIAL KNEE JOINT Priority: High Current Visit: Yes Qualifiers: Laterality: right Qualified Code(s): Z96.651 - Presence of right artificial knee joint (2) Osteoarthritis SNOMED Code(s): 695241274 Code(s): M19.90 - UNSPECIFIED OSTEOARTHRITIS, UNSPECIFIED SITE Priority: High Current Visit: Yes Qualifiers: Osteoarthritis location: knee Osteoarthritis type: primary Laterality: bilateral Qualified Code(s): M17.0 - Bilateral primary osteoarthritis of knee (3) HTN (hypertension) SNOMED Code(s): 89902476 Code(s): I10 - ESSENTIAL (PRIMARY) HYPERTENSION Priority: Medium Current Visit: No Qualifiers: Hypertension type: unspecified Qualified Code(s): I10 - Essential (primary ) hypertension (4) Obesity SNOMED Code(s): 932929967, 386606116 Code(s): E66.9 - OBESITY, UNSPECIFIED Priority: Medium Current Visit: Yes Qualifiers: Obesity type: unspecified obesity type Obesity classification: adult class 3 (BMI >= 40) Serious obesity comorbidity presence: unspecified whether serious comorbidity present Body mass index: BMI 45.0-49.9 Qualified Code(s) : E66.01 - Morbid (severe) obesity due to excess calories; Z68.42 - Body mass index (BMI) 45.0-49.9, adult (5) Asthma SNOMED Code(s): 360524630 Code(s): J45.909 - UNSPECIFIED ASTHMA, UNCOMPLICATED Priority: Medium Current Visit: No Qualifiers: Asthma severity: unspecified severity Asthma persistence: unspecified Asthma complication type: unspecified Qualified Code(s): J45.909 - Unspecified asthma, uncomplicated (6) GEOFFREY (obstructive sleep apnea) SNOMED Code(s): 35855281 Code(s): G47.33 - OBSTRUCTIVE SLEEP APNEA (ADULT) (PEDIATRIC) Priority: Medium Current Visit: No (7) Hypothyroidism SNOMED Code(s): 78004971 Code(s): E03.9 - HYPOTHYROIDISM, UNSPECIFIED Priority: Low Current Visit : No Qualifiers: Hypothyroidism type: unspecified Qualified Code(s): E03.9 - Hypothyroidism , unspecified (8) CKD (chronic kidney disease) SNOMED Code(s): 852668947 Code(s): N18.9 - CHRONIC KIDNEY DISEASE, UNSPECIFIED Priority: Medium Current Visit: No Qualifiers: Chronic kidney disease stage: unspecified stage Qualified Code(s): N18.9 - Chronic kidney disease, unspecified (9) Fatigue SNOMED Code(s): 93715369 Code(s): R53.83 - OTHER FATIGUE Priority: Low Current Visit: No Qualifiers: Fatigue type: unspecified Qualified Code(s): R53.83 - Other fatigue (10) Depression SNOMED Code(s): 05822711 Code(s): F32.9 - MAJOR DEPRESSIVE DISORDER, SINGLE EPISODE, UNSPECIFIED Priority: Low Current Visit: No Qualifiers: Depression Type: other depression Qualified Code(s): F32.89 - Other specified depressive episodes (11) Goiter SNOMED Code(s): 0201019 Code(s): E04.9 - NONTOXIC GOITER, UNSPECIFIED Priority: Low Current Visit : No (12) History of polymyalgia rheumatica SNOMED Code(s): 171560403 Code(s): Z87.39 - PERSONAL HISTORY OF DISEASES OF THE MS SYS AND CONN TISS Priority: Low Current Visit: No (13) Vitamin A deficiency SNOMED Code(s): 32275954 Code(s): E50.9 - VITAMIN A DEFICIENCY, UNSPECIFIED Priority: Low Current Visit: No (14) Urolithiasis SNOMED Code(s): 55410933, 342502907 Code(s): N20.9 - URINARY CALCULUS, UNSPECIFIED Priority: Low Current Visit: No Qualifiers: Urinary calculus location: other lower urinary tract location Qualified Code(s): N21.8 - Other lower urinary tract calculus (15) Carpal tunnel syndrome SNOMED Code(s): 65148311 Code(s): G56.00 - CARPAL TUNNEL SYNDROME, UNSPECIFIED UPPER LIMB Priority: Low Current Visit: No Qualifiers: Laterality: unspecified laterality Qualified Code(s): G56.00 - Carpal tunnel syndrome, unspecified upper limb (16) Muscle spasm SNOMED Code(s): 61117341 Code(s): M62.838 - OTHER MUSCLE SPASM Priority: Low Current Visit: No Problem List Initiated/Reviewed/Updated: Yes Plan: I/P: Acute: S/P right total knee arthroplasty - post-operative day 1 -DVT prophylaxis and pain management per primary care team -PT/OT -IS/RT -Monitor oxygen saturation -Titrate oxygen as needed -Home medications reviewed -Vital signs stable -Monitor labs -Pre-operative Hgb was 14.2, Now 12.0 -Pre-operative GFR was 36; Now 39 -Pre-operative creatinine was 1.5; Now 1.4 -Pre-operative WBC was 11.2; Now 14.76 -Pre-operative 12-lead showed a sinus rhythm with non-specific intraventricular conduction delay Osteoarthritis of bilateral knees -Pain management per primary care team S/P Left knee cortisone injection -Management per primary team Chronic: HTN Obesity Asthma GEOFFREY with CPAP not used regularly Hypothyroidism GEOFFREY CKD OA fatigue depression goiter vitamin D deficiency hx/o urolithiasis edema increased urinary frequency polymyalgia carpal tunnel syndrome muscle spasms Plan: CM for discharge planning GI prophylaxis Home medications as indicated Other orders as listed above Routine AM labs She is a full code. Her PCP is Estrella Rosas NP. From a hospitalist standpoint Blanca is doing well. She has been up ambulating and working with therapies. She is off of oxygen and has urinated. Her labs and vital signs remain stable. Her pain is controlled. She is cleared for discharge pending primary team and PT/OT agreement. Thank you for allowing us to participate in the care of this patient!!
[2019-10-07] MEDS: Docusate Sodium 100 MG Cap PO SCH (08:13)
[2019-10-07] MEDS: Famotidine 20 MG Tab PO SCH (08:16)
--- NOTE | 2019-10-07 08:18 | PCM.SURGPN ---
- General Info Date of Service: 10/07/19 POD#: 1 Functional Status: Reports: Pain Controlled, Tolerating Diet, Ambulating, Urinating, Incentive Spirometry, Other (The pt states she has been able to walk in her room and the halls.) - Patient Data Vitals - Most Recent: Last Vital Signs Temp 97.9 F 10/07/19 04:01 Pulse 57 L 10/07/19 04:01 Resp 18 10/07/19 04:01 BP 114/62 10/07/19 04:01 Pulse Ox 90 L 10/07/19 04:01 Weight - Most Recent: 275 lb 12.8 oz I&O - Last 24 Hours: Intake & Output 10/06/19 10/07/19 10/07/19 22:59 06:59 14:59 Intake Total 220 900 Output Total 400 Balance 220 500 Lab Results Last 24 Hrs: Laboratory Results - last 24 hr 10/07/19 10/07/19 Range/Units 05:31 05:31 WBC 14.76 H (3.98-10.04) K/mm3 RBC 4.41 (3.98-5.22) M/mm3 Hgb 12.0 D (11.2-15.7) gm/dl Hct 37.3 (34.1-44.9) % MCV 84.6 (79.4-94.8) fl MCH 27.2 (25.6-32.2) pg MCHC 32.2 (32.2-35.5) g/dl RDW Std Deviation 45.1 (36.4-46.3) fL Plt Count 281 (182-369) K/mm3 MPV 10.0 (9.4-12.3) fl Sodium 137 (136-145) mEq/L Potassium 3.9 (3.5-5.1) mEq/L Chloride 102 (98-107) mEq/L Carbon Dioxide 27 (21-32) mEq/L Anion Gap 11.9 (5-15) BUN 33 H (7-18) mg/dL Creatinine 1.4 H (0.55-1.02) mg/dL Est Cr Clr Drug Dosing 37.82 mL/min Estimated GFR (MDRD) 39 (>60) mL/min BUN/Creatinine Ratio 23.6 H (14-18) Glucose 153 H (74-106) mg/dL Calcium 9.3 (8.5-10.1) mg/dL Total Bilirubin 0.4 (0.2-1.0) mg/dL AST 16 (15-37) U/L ALT 20 (14-59) U/L Alkaline Phosphatase 85 (46-116) U/L Total Protein 7.0 (6.4-8.2) g/dl Albumin 2.8 L (3.4-5.0) g/dl Globulin 4.2 gm/dL Albumin/Globulin Ratio 0.7 L (1-2) Med Orders - Current: Current Medications Albuterol (Proventil Neb Soln) 0.63 mg NEB Q4H PRN PRN Reason: Shortness of Breath Allopurinol (Zyloprim) 100 mg PO DAILY [facility] Aspirin (Ecotrin) 325 mg PO BID [facility] Bisacodyl (Dulcolax) 5 mg PO DAILY PRN PRN Reason: Constipation Carvedilol (Coreg) 3.125 mg PO BID [facility] Cholecalciferol (Vitamin D3) 5,000 unit PO DAILY [facility] Last Admin: 10/07/19 08:13 Dose: 5,000 unit Cyclobenzaprine HCl (Flexeril) 10 mg PO TID PRN PRN Reason: Spasms Docusate Sodium (Colace) 100 mg PO BID [facility] Last Admin: 10/07/19 08:13 Dose: 100 mg Famotidine (Pepcid) 20 mg PO Q12H [facility] Last Admin: 10/06/19 21:31 Dose: 20 mg Fluoxetine HCl (Prozac) 60 mg PO DAILY [facility] Last Admin: 10/07/19 08:13 Dose: 60 mg Levothyroxine Sodium (Levothyroxine) 112 mcg PO ACBREAKFAST [facility] Last Admin: 10/07/19 06:17 Dose: 112 mcg Loratadine (Claritin) 10 mg PO DAILY [facility] Morphine Sulfate (Morphine) 2 mg IVPUSH Q2H PRN PRN Reason: Breakthrough Pain Naloxone HCl (Narcan) 0.1 mg IVPUSH Q5M PRN PRN Reason: Oversedation Ondansetron HCl (Zofran) 4 mg IVPUSH Q6H PRN PRN Reason: Nausea/Vomiting Oxycodone/Acetaminophen (Percocet 325-5 Mg) 1 - 2 tab PO Q4H PRN PRN Reason: Pain Last Admin: 10/07/19 07:06 Dose: 2 tab Anoro Ellipta 62.5- (25 Mcg Ptom) 0 each INH DAILY DRAKE Senna (Senna) 8.6 mg PO BID PRN PRN Reason: Constipation Discontinued Medications Acetaminophen (Tylenol) 975 mg PO ONETIME DRAKE Stop: 10/06/19 14:00 Last Admin: 10/06/19 06:34 Dose: 975 mg Albuterol (Proventil Neb Soln) 2.5 mg NEB ONETIME PRN PRN Reason: bronchodilation Last Admin: 10/06/19 06:54 Dose: 2.5 mg Albuterol (Proventil Neb Soln) 2.5 mg NEB ONETIME ONE Stop: 10/06/19 07:29 Last Admin: 10/06/19 10:53 Dose: Not Given Bupivacaine HCl (Sensorcaine-Mpf 0.25%) Confirm Administered Dose 40 ml .ROUTE .STK-MED ONE Stop: 10/06/19 06:41 Last Admin: 10/06/19 08:52 Dose: 4 ml Cefazolin Sodium (Ancef) Confirm Administered Dose 3 gm .ROUTE .STK-MED ONE Stop: 10/06/19 06:19 Cefazolin Sodium (Ancef) Confirm Administered Dose 2 gm .ROUTE .STK-MED ONE Stop: 10/06/19 06:41 Last Admin: 10/06/19 08:21 Dose: 2 gm Morphine Sulfate 8 mg/Epinephrine HCl 0.3 mg/Cefuroxime Sodium 750 mg/Ketorolac Tromethamine 30 mg/Sodium Chloride 7.9 ml 0 mg .XX ASDIRECTED PRN PRN Reason: Pain Stop: 10/06/19 12:00 Last Admin: 10/06/19 08:25 Dose: 788.3 mg Diphenhydramine HCl (Benadryl) 25 mg IVPUSH Q6H PRN PRN Reason: pruritis Stop: 10/06/19 12:00 Ephedrine Sulfate (Ephedrine Sulfate) 5 mg IVPUSH ASDIRECTED PRN PRN Reason: Hypotension Stop: 10/06/19 12:00 Epinephrine HCl (Adrenalin) Confirm Administered Dose 1 mg .ROUTE .STK-MED ONE Stop: 10/06/19 05:17 Famotidine (Pepcid) 20 mg PO Q12H [facility] Last Admin: 10/06/19 14:29 Dose: Not Given Fentanyl (Sublimaze) Confirm Administered Dose 100 mcg .ROUTE .STK-MED ONE Stop: 10/06/19 06:19 Fentanyl (Sublimaze) 50 mcg IVPUSH Q5M PRN PRN Reason: Pain Stop: 10/06/19 12:00 Lactated Ringer's (Ringers, Lactated) 1,000 mls @ 125 mls/hr IV ASDIRECTED [facility] Stop: 10/06/19 23:00 Last Admin: 10/06/19 07:30 Dose: 125 mls/hr Lidocaine HCl (Xylocaine-Mpf 1%) Confirm Administered Dose 6 mls @ as directed .ROUTE .STK-MED ONE Stop: 10/06/19 06:19 Lactated Ringer's (Ringers, Lactated) Confirm Administered Dose 1,000 mls @ as directed .ROUTE .STK-MED ONE Stop: 10/06/19 06:19 Cefazolin Sodium/Dextrose 2 gm (/ Premix) 50 mls @ 100 mls/hr IV Q8H [facility] Stop: 10/06/19 23:14 Last Admin: 10/06/19 14:29 Dose: Not Given Cefazolin Sodium/Dextrose 2 gm (/ Premix) 50 mls @ 66.667 mls/hr IV Q8H [facility] Stop: 10/07/19 07:29 Last Admin: 10/07/19 06:20 Dose: 66.667 mls/hr Cefazolin Sodium/Dextrose 1 gm (/ Premix) 50 mls @ 100 mls/hr IV Q8H [facility] Stop: 10/07/19 07:14 Last Admin: 10/07/19 06:20 Dose: 100 mls/hr Phenylephrine HCl 1 mg/ Sodium (Chloride) 10.1 mls @ 1 mls/sec IV TITRATE DRAKE; Protocol Stop: 10/06/19 12:00 Lactated Ringer's (Ringers, Lactated) Confirm Administered Dose 1,000 mls @ as directed .ROUTE .STK-MED ONE Stop: 10/06/19 08:14 Cefazolin Sodium/Dextrose (Ancef) Confirm Administered Dose 50 mls @ as directed .ROUTE .STK-MED ONE Stop: 10/06/19 13:19 Last Admin: 10/06/19 14:27 Dose: Not Given Ketamine HCl (Ketalar) Confirm Administered Dose 500 mg .ROUTE .STK-MED ONE Stop: 10/06/19 06:20 Lidocaine/Sodium Bicarbonate (Buffered Lidocaine 1% In Ns 8.4%) 0.25 ml IDERM ONETIME PRN PRN Reason: Prior to IV Start Stop: 10/06/19 18:00 Last Admin: 10/06/19 07:30 Dose: 0.25 ml Midazolam HCl (Versed 1 Mg/Ml) Confirm Administered Dose 2 mg .ROUTE .STK-MED ONE Stop: 10/06/19 06:20 Miscellaneous Medication (Phenylephrine 1 Mg/10 Ml-Ns) Confirm Administered Dose 1 mg IV .STK-MED ONE Stop: 10/06/19 06:19 Non-Formulary Medication (Albuterol [Proair Hfa]) 1 - 2 puff INH Q4H PRN PRN Reason: Shortness of Breath Ondansetron HCl (Zofran) Confirm Administered Dose 4 mg .ROUTE .STK-MED ONE Stop: 10/06/19 06:19 Ondansetron HCl (Zofran) 4 mg IVPUSH ONETIME PRN PRN Reason: Nausea/Vomiting Oxycodone HCl (Oxycontin) 10 mg PO ONETIME [facility]RAKE Stop: 10/06/19 14:00 Last Admin: 10/06/19 06:33 Dose: 10 mg Pregabalin (Lyrica) 50 mg PO ONETIME DRAKE Stop: 10/06/19 14:00 Last Admin: 10/06/19 06:32 Dose: 50 mg Propofol (Diprivan 20 Ml) Confirm Administered Dose 400 mg .ROUTE .STK-MED ONE Stop: 10/06/19 06:19 Propofol (Diprivan 20 Ml) Confirm Administered Dose 200 mg .ROUTE .STK-MED ONE Stop: 10/06/19 07:53 Ropivacaine (Naropin 0.5%) Confirm Administered Dose 30 ml .ROUTE .STK-MED ONE Stop: 10/06/19 05:17 Sodium Chloride (Saline Flush) 10 ml FLUSH ASDIRECTED PRN PRN Reason: Keep Vein Open Stop: 10/06/19 18:00 Tranexamic Acid (Cyklokapron) Confirm Administered Dose 1,000 mg .ROUTE .STK- MED ONE Stop: 10/06/19 06:40 Triamcinolone Acetonide (Kenalog-40) Confirm Administered Dose 80 mg .ROUTE .STK -MED ONE Stop: 10/06/19 06:41 Last Admin: 10/06/19 08:52 Dose: 80 mg Vancomycin HCl (Vancomycin) Confirm Administered Dose 1 gm .ROUTE .STK-MED ONE Stop: 10/06/19 06:41 Last Admin: 10/06/19 08:30 Dose: 1 gm - Exam Wound/Incisions: Dressing Dry and Intact General: Alert, Cooperative, No Acute Distress Lungs: Normal Respiratory Effort Extremities: Other (NVS intact for BLE. Ben's negative.) Sepsis Event Note - Evaluation Sepsis Screening Result: No Definite Risk - Focused Exam Vital Signs: Vital Signs Temp Pulse Resp BP Pulse Ox 10/07/19 04:01 97.9 F 57 L 18 114/62 90 L 10/06/19 23:37 97.9 F 56 L 19 94/54 L 90 L 10/06/19 21:42 57 L 93 L 10/06/19 21:29 113/70 10/06/19 21:19 70 93 L 10/06/19 21:01 97.7 F 53 L 16 98/62 90 L Date Exam was Performed: 10/07/19 Time Exam was Performed: 08:17 - Problem List Review Problem List Initiated/Reviewed/Updated: Yes - My Orders Last 24 Hours: Active Orders 24 hr Category Date Time Status Notify Provider [RC] ASDIRECTED Care 10/06/19 07:27 Active Pulse Oximetry [RC] ASDIRECTED Care 10/06/19 07:27 Active Ready for Discharge [RC] PER UNIT ROUTINE Care 10/07/19 08:16 Ordered Regular Diet [DIET] Diet 10/06/19 Lunch Active Albuterol [Proventil Neb Soln] Med 10/06/19 10:11 Active 0.63 mg NEB Q4H PRN Aspirin [Ecotrin] Med 10/07/19 09:00 Active 325 mg PO BID Cholecalciferol (Vitamin D3) [Vitamin D3] Med 10/07/19 09:00 Active 5,000 unit PO DAILY Docusate Sodium [Colace] Med 10/06/19 21:00 Active 100 mg PO BID FLUoxetine [PROzac] Med 10/07/19 09:00 Active 60 mg PO DAILY Famotidine [Pepcid] Med 10/06/19 21:00 Active 20 mg PO Q12H Levothyroxine Med 10/07/19 06:00 Active 112 mcg PO ACBREAKFAST Loratadine [Claritin] Med 10/07/19 09:00 Active 10 mg PO DAILY Patient's Own Medication [Ptom] Med 10/07/19 09:00 Active 0 each INH DAILY allopurinoL [Zyloprim] Med 10/07/19 09:00 Active 100 mg PO DAILY carvediloL [Coreg] Med 10/07/19 09:00 Active 3.125 mg PO BID Medication Orders Albuterol (Proventil Neb Soln) 0.63 mg NEB Q4H PRN PRN Reason: Shortness of Breath Allopurinol (Zyloprim) 100 mg PO DAILY [facility] Aspirin (Ecotrin) 325 mg PO BID [facility] Bisacodyl (Dulcolax) 5 mg PO DAILY PRN PRN Reason: Constipation Carvedilol (Coreg) 3.125 mg PO BID [facility] Cholecalciferol (Vitamin D3) 5,000 unit PO DAILY [facility] Last Admin: 10/07/19 08:13 Dose: 5,000 unit Cyclobenzaprine HCl (Flexeril) 10 mg PO TID PRN PRN Reason: Spasms Docusate Sodium (Colace) 100 mg PO BID [facility] Last Admin: 10/07/19 08:13 Dose: 100 mg Admin: 10/06/19 21:31 Dose: 100 mg Famotidine (Pepcid) 20 mg PO Q12H [facility] Last Admin: 10/06/19 21:31 Dose: 20 mg Fluoxetine HCl (Prozac) 60 mg PO DAILY [facility] Last Admin: 10/07/19 08:13 Dose: 60 mg Levothyroxine Sodium (Levothyroxine) 112 mcg PO ACBREAKFAST [facility] Last Admin: 10/07/19 06:17 Dose: 112 mcg Loratadine (Claritin) 10 mg PO DAILY [facility] Morphine Sulfate (Morphine) 2 mg IVPUSH Q2H PRN PRN Reason: Breakthrough Pain Naloxone HCl (Narcan) 0.1 mg IVPUSH Q5M PRN PRN Reason: Oversedation Ondansetron HCl (Zofran) 4 mg IVPUSH Q6H PRN PRN Reason: Nausea/Vomiting Oxycodone/Acetaminophen (Percocet 325-5 Mg) 1 - 2 tab PO Q4H PRN PRN Reason: Pain Last Admin: 10/07/19 07:06 Dose: 2 tab Admin: 10/06/19 21:31 Dose: 1 tab Admin: 10/06/19 15:47 Dose: 2 tab Admin: 10/06/19 11:41 Dose: 2 tab Anoro Ellipta 62.5- (25 Mcg Ptom) 0 each INH DAILY DRAKE Senna (Senna) 8.6 mg PO BID PRN PRN Reason: Constipation - Assessment Assessment (Free Text/Narrative):: POD#1 - right TKA with left knee cortisone injection - Plan Plan (Free Text/Narrative):: 1. Hgb 12.0. 2. Discharge to home today. 3. 325mg ASA PO BID, frequent mobility, TEDs. 4. Outpatient therapy. The pt's case was discussed with Dr. Vasquez.
[2019-10-07 08:19] VITALS: BP 111/65; PULSE 62
[2019-10-07] MEDS ORDERED: Loratadine 10 MG Tab PO SCH (09:00)
[2019-10-07] MEDS ORDERED: ANORO ELLIPTA INH SCH (09:00)
[2019-10-07] MEDS ORDERED: FLUoxetine 20 MG Cap PO SCH (09:00)
[2019-10-07] MEDS ORDERED: Carvedilol 3.125 MG Tab PO SCH (09:00)
[2019-10-07] MEDS ORDERED: Cholecalciferol (Vitamin D3) 5,000 UNIT Tab PO SCH (09:00)
[2019-10-07] MEDS ORDERED: Aspirin 325 MG Tab.EC PO SCH (09:00)
[2019-10-07] MEDS ORDERED: Allopurinol 100 MG Tab PO SCH (09:00)
--- NOTE | 2019-10-07 09:25 | PCM48HPAN ---
Post Anesthesia Note - EVALUATION WITHIN 48HRS OF ANESTHETIC Vital Signs in Normal Range: Yes Patient Participated in Evaluation: Yes Respiratory Function Stable: Yes Airway Patent: Yes Cardiovascular Function Stable: Yes Hydration Status Stable: Yes Pain Control Satisfactory: Yes Nausea and Vomiting Control Satisfactory: Yes Mental Status Recovered: Yes Vital Signs: Last Vital Signs Temp 36.6 C 10/07/19 04:01 Pulse 62 10/07/19 08:15 Resp 18 10/07/19 04:01 BP 111/65 10/07/19 08:15 Pulse Ox 90 L 10/07/19 04:01
--- NOTE | 2019-10-08 15:15 | PCM.OPNOTE ---
- General Post-Op/Procedure Note Date of Surgery/Procedure: 10/06/19 Operative Procedure(s): right total knee arthoplasty with left knee corticosteroid injection Pre Op Diagnosis: bilateral knee osteoarthrosis Post-Op Diagnosis: Same Anesthesia Technique: Local, MAC, Spinal Primary Surgeon: Beto Vasquez Anesthesia Provider: Teodora Walker [employer] Operator: Elayne Sanchez [employer] Operator: Maira Lazo EBL in mLs: 400 Complications: None Condition: Good Free Text/Narrative:: 06/30 9mm 29x9
--- NOTE | 2019-10-08 17:06 | OR ---
DATE OF OPERATION: 10/06/2019 SURGEON: Beto Vasquez MD OPERATION PERFORMED: Right total knee arthroplasty with left knee corticosteroid injection. PREOPERATIVE DIAGNOSIS: Bilateral knee osteoarthrosis. POSTOPERATIVE DIAGNOSIS: Bilateral knee osteoarthrosis. ANESTHESIA: Local MAC with spinal. ANESTHESIA PROVIDER: Teodora Walker CRNA. ASSISTANTS: Elayne Sanchez PA-C, and Maira Lazo LPN. ESTIMATED BLOOD LOSS: 400 mL. COMPLICATIONS: None. CONDITION: Stable. IMPLANTS: 1. [place] size 3 press-fit CR femur. 2. Nik size 3 press-fit tibial base plate. 3. [place] size 3, 9 mm CS polyethylene insert. 4. Nik size 29 x 9 mm press-fit asymmetric patella. DESCRIPTION OF PROCEDURE: The patient was identified in the preop holding area. Proper site was marked and identified by the surgeon. The patient was taken back to the operating theater. After adequate anesthesia, the patient's right lower extremity had a nonsterile tourniquet applied and it was sterilely prepped and draped in the usual sterile fashion. OR time-out was performed. The patient received 2 g IV Ancef. At this time, the right lower extremity was exsanguinated. Tourniquet was insufflated to 300 mmHg. Standard medial parapatellar incision was made. Medial parapatellar arthrotomy was created. Deep fibers of the MCL were raised and anterior fat pad was resected. At this time, attention was turned to the patella. Patella measured a 23, it was resected to a 13 for a 29 x 9 mm patella. Drill holes were then drilled and found to be in adequate position. The drill was then drilled in the distal femur and the intramedullary distal femoral cutting guide was then placed. 8 mm was resected off the distal femur and was found to be an adequate resection. Sizing guide was placed. It was found to be a size 3 press-fit CR femur that was shown on the implant record at the beginning of this dictation. The drill holes were drilled for the epicondylar axis using [place] line and epicondyles as reference. At this time, the 4-in-1 cutting block was placed. An anterior posterior and anterior and posterior chamfer cuts were then completed. Attention was turned to the tibia. The posterior medial lateral retractors were placed. The extramedullary tibial guide was placed. It was placed in the old footprint of the ACL. It was aligned with the center of the ankle and 0 degrees of slope, 9 mm was then resected off the unaffected side. There was found to be an acceptable reduction. At this time, posterior osteophytes were removed along with medial and lateral meniscus. A trial implant was placed with a correct sized tibia that was mentioned at the beginning of the dictation. A Nik size 3, 9 mm CS polyethylene insert was then placed. The patient's knee was brought through range of motion. The patella was tracking centrally and was stable to varus and valgus stress. Alignment was found to be roughly at 0 degrees. The tibia was stamped and drilled in proper rotation. The universal tibial base plate was impacted in place. Next, the Nik size 3 press-fit CR femur impacted into place and the Nik size 3, 9 mm CS polyethylene insert was placed. The patient's knee was brought into full extension. The patella was then press-fit in place at this time. Tourniquet was deflated. One liter dilute Betadine solution was irrigated through the knee along with 3 L of pulse lavage irrigation with Ancef. Periarticular injection was then completed. The patient's knee was brought through a range of motion. Once the cement had time to set up and it was found to be stable to varus valgus stress, the patella was tracking centrally with full range of motion. At this time, a #2 barbed suture was used for closure of the medial parapatellar arthrotomy. Topical tranexamic acid was placed. 2-0 Vicryl was used subcutaneously, Prineo was used for the skin. The patient tolerated the procedure well and was sent to the PACU in stable condition. After this was completed, 2 mL of 40 mg Kenalog and 4 mL of 0.25% Marcaine were injected to the other knee, and the patient tolerated all procedures well. MAGUE /[id number]
== END 2019-10-07 11:17 | disposition home or self-care (01) | DRG 302 ==
LOC: JD.SDS 06:16 → JD.MS 06:17 → JD.SDS 10:12 → JD.MS 14:19
PROVIDERS: ADMIT Orthopaedic Surgery; ATTEND Orthopaedic Surgery
PROC: 0SRC0JA Replacement of Right Knee Joint with Synthetic Substitute, Uncemented, Open Approach (ICD-10-PCS; principal; 2019-10-06)
DX: M17.0 Bilateral primary osteoarthritis of knee (principal); J45.20 Mild intermittent asthma, uncomplicated; E66.01 Morbid (severe) obesity due to excess calories; Z68.42 Body mass index [BMI] 45.0-49.9, adult; J45.909 Unspecified asthma, uncomplicated; G47.33 Obstructive sleep apnea (adult) (pediatric); F32.9 Major depressive disorder, single episode, unspecified; E03.9 Hypothyroidism, unspecified; G47.30 Sleep apnea, unspecified; E04.2 Nontoxic multinodular goiter; G56.00 Carpal tunnel syndrome, unspecified upper limb; M62.838 Other muscle spasm; I12.9 Hypertensive chronic kidney disease with stage 1 through stage 4 chronic kidney disease, or unspecified chronic kidney disease; N18.9 Chronic kidney disease, unspecified; Z91.013 Allergy to seafood; Z91.041 Radiographic dye allergy status; Z91.018 Allergy to other foods; Z79.890 Hormone replacement therapy; Z79.899 Other long term (current) drug therapy; Z87.442 Personal history of urinary calculi; Z90.49 Acquired absence of other specified parts of digestive tract; Z90.710 Acquired absence of both cervix and uterus; E66.9 Obesity, unspecified; E55.9 Vitamin D deficiency, unspecified
CPT/HCPCS: 01402; 36415; 64450; 73560-26-RT; 73560-RT; 80053; 85027; 87641; 94640; 94760; 94761; 97110-GP; 97116-GP; 97162-GP; 97165-GO; 97530-GP; 97535-GO; A9270-GY; C1776; J0171; J0690; J0697; J1885; J2001; J2250; J2270; J2370; J2405; J2704; J2795; J3010; J3301; J3370; J3490; J7120; U0002

== ENCOUNTER 2020-04-15 07:40 | Day surgery (SDC) | payer BC ==
[~2020-04-15 07:40] MED LIST changes: +Morphine 8 MG, EPINEPHrine 0.3 MG, Cefuroxime 750 MG, Ketorolac 30 MG, Sodium Chloride ... PRN
[2020-04-15] MEDS ORDERED: Bupivacaine 0.25% 10 ML SDV ONE (08:02)
[2020-04-15] MEDS ORDERED: Vancomycin 1 GM SDV ONE (08:02)
[2020-04-15] MEDS ORDERED: Albuterol 0.083% 2.5 MG/3 ML Neb Soln NEB SCH ×2 (08:32→13:01)
[2020-04-15] MEDS ORDERED: fentaNYL 100 MCG/2 ML SDV ONE (08:35)
[2020-04-15] MEDS ORDERED: Propofol 200 MG/20 ML SDV ONE (08:35)
[2020-04-15] MEDS ORDERED: Midazolam 1 MG/ML 2 ML SDV ONE (08:35)
[2020-04-15] MEDS ORDERED: Lidocaine 1% 4 ML ONE (08:35)
[2020-04-15] MEDS ORDERED: Ketorolac 30 MG/ML SDV ONE (08:36)
[2020-04-15] MEDS ORDERED: ceFAZolin 1 GM Vial ONE (08:36)
[2020-04-15] MEDS ORDERED: Ondansetron 4 MG/2 ML SDV ONE (08:36)
[2020-04-15] MEDS ORDERED: Dexamethasone 4 MG/ML 5 ML MDV ONE (08:36)
[2020-04-15] MEDS ORDERED: Lactated Ringers 1,000 ML ONE ×2 (10:29→10:45)
[2020-04-15] MEDS ORDERED: fentaNYL 100 MCG/2 ML SDV IVPUSH PRN (10:30)
[2020-04-15] MEDS ORDERED: Ondansetron 4 MG/2 ML SDV IVPUSH PRN (10:30)
[2020-04-15] MEDS ORDERED: HYDROmorphone 0.5 MG/0.5 ML Syringe IVPUSH PRN (10:30)
--- NOTE | 2020-04-15 10:36 | PCM.PREANE ---
Preanesthetic Assessment - Procedure Proposed Procedure: Left Total Knee Arthroplasty - Anesthesia/Transfusion/Family Hx Anesthesia History: Prior Anesthesia Reaction Type of Anesthesia Reaction: Other (see below) (Agitation/Anxiety with Ketamine use for cataract procedure. ) Family History of Anesthesia Reaction: No Transfusion History: No Prior Transfusion(s) Intubation History: Unknown - Review of Systems General: Fatigue Pulmonary: Shortness of Breath (With heavy activity. Denies chest pain. Due to obesity. Sleep apnea with CPAP. Does not use regularly. Encouraged to use CPAP in post operatiave period, verbalizes understanding. ), Other (Asthma, controlled, rare use of rescure inhaler. Greater than 6 months ago. ) Cardiovascular: No Symptoms Gastrointestinal: Other (GERD) Neurological: Other (Fibromyalgia) Other: Reports: None (Morbid Obesity BMI 48.9 today. ), Thyroid Problems, Depression - Physical Assessment NPO Status Date: 04/14/20 NPO Status Time: 22:00 Vital Signs: Last Vital Signs Temp 36.1 C 04/15/20 07:40 Pulse 66 04/15/20 07:40 Resp 16 04/15/20 07:40 BP 122/61 04/15/20 07:40 Pulse Ox 96 04/15/20 08:59 Height: 1.63 m Weight: 129.274 kg ASA Class: 3 Mental Status: Alert & Oriented x3 Airway Class: Mallampati = 2 Dentition: Reports: Normal Dentition Thyro-Mental Finger Breadths: 2 Mouth Opening Finger Breadths: 3 ROM/Head Extension: Full Lungs: Clear to Auscultation, Normal Respiratory Effort, Decreased Breath Sounds Cardiovascular: Regular Rate, Regular Rhythm - Lab Values: Laboratory Last Values MRSA (PCR) Negative 04/02/20 12:01 - Allergies Allergies/Adverse Reactions: Allergies Allergy/AdvReac Type Severity Reaction Status Date / Time Iodinated Contrast Media Allergy Unknown Anaphylactic Verified 04/14/20 12:44 Shock iodine Allergy Anaphylactic Verified 04/14/20 12:44 Shock kiwi Allergy Rash Verified 04/14/20 12:44 shellfish derived Allergy Anaphylactic Verified 04/14/20 12:44 Shock - Anesthesia Plan Pre-Op Medication Ordered: Other (Albuterol nebulizer. ) - Acknowledgements Anesthesia Type Planned: Spinal, Regional Block (Post operative Adductor Canal Block for pain control. ) Pt an Appropriate Candidate for the Planned Anesthesia: Yes Alternatives and Risks of Anesthesia Discussed w Pt/Guardian: Yes Pt/Guardian Understands and Agrees with Anesthesia Plan: Yes PreAnesthesia Questionnaire HEENT History: Reports: Allergic Rhinitis, Cataract, Impaired Vision Other HEENT History: glasses Cardiovascular History: Reports: Hypertension Other Cardiovascular History: abnormal stress test, inverted T wave, swelling/ed angelika Respiratory History: Reports: Asthma, Sleep Apnea Other Respiratory History: Does not use CPAP regularly Gastrointestinal History: Reports: None Genitourinary History: Reports: Renal Calculus Other Genitourinary History: abnormal renal function, urinary frequency OUTPATIENT RECEPTIONIST History: Reports: Other OB/BYN History: pelvic pain Musculoskeletal History: Reports: Arthritis, Fracture, Osteoarthritis Other Musculoskeletal History: polymyalgia, right leg pain, right hip pain, carpal tunnel syndrome, muscle spasms, neck pain, left femur fracture with surgical repair and later hardware removal Neurological History: Reports: None Psychiatric History: Reports: Depression, Other (See Below) Endocrine/Metabolic History: Reports: Hypothyroidism, Obesity/BMI 30+, Vitamin D Deficiency, Other (See Below) Other Endocrine/Metabolic History: goiter, thyroiditis Hematologic History: Reports: None Immunologic History: Reports: None Oncologic (Cancer) History: Reports: None Dermatologic History: Reports: Other (See Below) Other Dermatologic History: erythema, insect bite, pruritis - Infectious Disease History Infectious Disease History: Reports: None - Past Surgical History Head Surgeries/Procedures: Reports: None HEENT Surgical History: Reports: Cataract Surgery, Naso-Sinus Surgery, Oral Surgery Cardiovascular Surgical History: Reports: None Respiratory Surgical History: Reports: None GI Surgical History: Reports: Appendectomy Female Surgical History: Reports: Hysterectomy Male Surgical History: Reports: None Endocrine Surgical History: Reports: None Neurological Surgical History: Reports: None Musculoskeletal Surgical History: Reports: Knee Replacement, ORIF Other Musculoskeletal Surgeries/Procedures:: left femur ORIF, right knee scar revision procedure, right total knee replacement Oncologic Surgical History: Reports: None Dermatological Surgical History: Reports: None - SUBSTANCE USE Tobacco Use Status *Q: Never Tobacco User Recreational Drug Use History: No - HOME MEDS Home Medications: Home Meds Cetirizine [ZyrTEC] 10 mg PO DAILY 07/17/18 [History] Levothyroxine 112 mcg PO DAILY 07/17/18 [History] Nebivolol [Bystolic] 5 mg PO DAILY 07/17/18 [History] Albuterol Sulfate 1 dose NEB Q4H PRN 10/05/19 [History] Albuterol [Proair HFA] 1 - 2 puff INH Q4H PRN 10/05/19 [History] Cholecalciferol (Vitamin D3) [Vitamin D3] 5,000 unit PO DAILY 10/05/19 [History] FLUoxetine HCl [Fluoxetine HCl] 60 mg PO DAILY 10/05/19 [History] Furosemide 20 mg PO DAILY PRN 10/05/19 [History] Spironolact/Hydrochlorothiazid [Spironolactone-HCTZ 25-25] 1 tab PO DAILY 10/05/19 [History] Umeclidinium Brm/Vilanterol Tr [Anoro Ellipta 62.5-25 MCG] 1 puff INH DAILY 10/05/19 [History] Allopurinol [Zyloprim] 300 mg PO DAILY 04/14/20 [History] Aspirin [Aspirin EC] 325 mg PO BID #84 tab 04/14/20 [Rx] Cyclobenzaprine [Flexeril] 10 mg PO BID PRN #20 tab 04/14/20 [Rx] Mupirocin Calcium [Mupirocin] 1 dose TOP TID PRN 04/14/20 [History] Potassium Gluconate [Potassium] 99 mg PO DAILY 04/14/20 [History] oxyCODONE 5 - 10 mg PO Q4H PRN #60 tab 04/14/20 [Rx] - CURRENT (IN HOUSE) MEDS Current Meds: Current Medications Acetaminophen (Tylenol) 975 mg PO NOW DRAKE Stop: 04/15/20 18:00 Last Admin: 04/15/20 07:52 Dose: 975 mg Documented by: Albuterol (Proventil Neb Soln) 2.5 mg NEB ONETIME DRAKE Stop: 04/15/20 13:00 Last Admin: 04/15/20 08:54 Dose: 2.5 mg Documented by: Morphine Sulfate 8 mg/Epinephrine HCl 0.3 mg/Cefuroxime Sodium 750 mg/Ketorolac Tromethamine 30 mg/Sodium Chloride 7.9 ml 0 mg .XX ASDIRECTED PRN PRN Reason: Pain Stop: 04/15/20 15:00 Lactated Ringer's (Ringers, Lactated) 1,000 mls @ 125 mls/hr IV ASDIRECTED DRAKE Last Admin: 04/15/20 07:50 Dose: 125 mls/hr Documented by: Lidocaine/Sodium Bicarbonate (Buffered Lidocaine 1% In Ns 8.4%) 0.25 ml IDERM ONETIME PRN PRN Reason: Prior to IV Start Last Admin: 04/15/20 07:50 Dose: 0.25 ml Documented by: Oxycodone HCl (Oxycontin) 10 mg PO ONETIME DRAKE Stop: 04/15/20 18:00 Last Admin: 04/15/20 07:53 Dose: 10 mg Documented by: Pregabalin (Lyrica) 50 mg PO ONETIME DRAKE Stop: 04/15/20 18:00 Last Admin: 04/15/20 07:52 Dose: 50 mg Documented by: Sodium Chloride (Saline Flush) 10 ml FLUSH ASDIRECTED PRN PRN Reason: Keep Vein Open Discontinued Medications Bupivacaine HCl (Sensorcaine-Mpf 0.25%) Confirm Administered Dose 30 ml .ROUTE .STK-MED ONE Stop: 04/15/20 08:03 Cefazolin Sodium (Ancef) Confirm Administered Dose 3 gm .ROUTE .STK-MED ONE Stop: 04/15/20 08:37 Dexamethasone (Dexamethasone) Confirm Administered Dose 20 mg .ROUTE .STK-MED ONE Stop: 04/15/20 08:37 Epinephrine HCl (Adrenalin) Confirm Administered Dose 1 mg .ROUTE .STK-MED ONE Stop: 04/15/20 07:18 Fentanyl (Sublimaze) Confirm Administered Dose 100 mcg .ROUTE .STK-MED ONE Stop: 04/15/20 08:36 Lidocaine HCl (Xylocaine-Mpf 1%) Confirm Administered Dose 4 mls @ as directed .ROUTE .STK-MED ONE Stop: 04/15/20 08:36 Ketorolac Tromethamine (Toradol) Confirm Administered Dose 30 mg .ROUTE .STK-MED ONE Stop: 04/15/20 08:37 Midazolam HCl (Versed 1 Mg/Ml) Confirm Administered Dose 2 mg .ROUTE .STK-MED ONE Stop: 04/15/20 08:36 Ondansetron HCl (Zofran) Confirm Administered Dose 4 mg .ROUTE .STK-MED ONE Stop: 04/15/20 08:37 Propofol (Diprivan 20 Ml) Confirm Administered Dose 600 mg .ROUTE .STK-MED ONE Stop: 04/15/20 08:36 Ropivacaine (Naropin 0.5%) Confirm Administered Dose 30 ml .ROUTE .[facility]-MED ONE Stop: 04/15/20 07:18 Tranexamic Acid (Cyklokapron) Confirm Administered Dose 1,000 mg .ROUTE .[facility]-MED ONE Stop: 04/15/20 08:03 Vancomycin HCl (Vancomycin) Confirm Administered Dose 1 gm .ROUTE .[facility]-MED ONE Stop: 04/15/20 08:03
--- NOTE | 2020-04-15 11:08 | PCM.POSTAN ---
POST ANESTHESIA ASSESSMENT - MENTAL STATUS Mental Status: Other (Drowsy) - VITAL SIGNS Vital Signs: Last Vital Signs Temp 36.1 C 04/15/20 07:40 Pulse 66 04/15/20 07:40 Resp 16 04/15/20 07:40 BP 122/61 04/15/20 07:40 Pulse Ox 96 04/15/20 08:59 1056 97.5F 108/53 70 17 96% - RESPIRATORY Respiratory Status: Respiratory Rate WNL, Airway Patent, O2 Saturation Stable - CARDIOVASCULAR CV Status: Pulse Rate WNL, Blood Pressure Stable - GASTROINTESTINAL GI Status: No Symptoms - PAIN Pain Score: 0 - POST OP HYDRATION Hydration Status: Adequate & Stable
--- NOTE | 2020-04-15 11:42 | PCM.OPNOTE ---
- General Post-Op/Procedure Note Date of Surgery/Procedure: 04/15/20 Operative Procedure(s): left total knee arthroplasty Pre Op Diagnosis: left knee osteoarthrosis Post-Op Diagnosis: Same Anesthesia Technique: Local, MAC, Spinal Primary Surgeon: Beto Vasquez Anesthesia Provider: Geraldine Kelly Grocery Sacker: Elayne Sanchez Grocery Sacker: Maira Lazo EBL in mLs: 200 Complications: None Condition: Good Free Text/Narrative:: 3 press fit femur 3 tibia 9mm 29x9
--- NOTE | 2020-04-15 11:58 | PCM.SN.2 ---
- Free Text/Narrative Note: Left selective femoral nerve block at the adductor canal for post-procedure pain control under US guidance requested by Dr. Vasquez. Date: 04/15/20 Time Out: 1125 Start: 1126 End: 1141 Chart reviewed. Consent signed. Questions answered. Appropriate monitors applied. Time out performed. Difficult visualization with ultrasound probe due to morbid obesity and BMI 48.9. Curvilinear probe used at a depth of 7.8 cm to identify structures. Left mid-shaft femur identified with ultrasound, scanning medially of femur, the femoral artery in the adductor canal visualized (color flow doppler utilized for verification) and the femoral nerve located laterally to the artery. The skin was prepped lateral to the ultrasound probe with chlorahexadine times two. The 21ga 4 insulated block needle was inserted under direct ultrasound guidance into the adductor canal. 25mL of 0.5% ropivacaine with 1:200,000 epinephrine was injected circumferentially around the nerve with intermittent negative aspiration noted. Patient tolerated the procedure well. Sterile technique noted along with sterile gloves, mask, and sterile probe cover. See picture on progress note and vital signs on nurses notes. Block completed in PACU. Rashid Kelly CRNA
--- NOTE | 2020-04-15 12:16 | CR ---
Left knee: AP and lateral views left knee were obtained. Comparison: Prior left knee exam of 03/11/12. Findings: Knee prosthesis is noted. Components are aligned. Soft tissue air is noted from the surgical procedure. No acute bony abnormality is seen. Impression: 1. Satisfactory postop radiographic appearance of recently placed left knee prosthesis. Diagnostic code #2
[2020-04-15] MEDS ORDERED: Albuterol 0.083% 2.5 MG/3 ML Neb Soln ONE (13:07)
[2020-04-15] MEDS ORDERED: oxyCODONE 5 MG Tab PO PRN (14:01)
--- NOTE | 2020-04-15 14:51 | PCM48HPAN ---
Post Anesthesia Note - EVALUATION WITHIN 48HRS OF ANESTHETIC Vital Signs in Normal Range: Yes Patient Participated in Evaluation: Yes Respiratory Function Stable: Yes Airway Patent: Yes Cardiovascular Function Stable: Yes Hydration Status Stable: Yes Pain Control Satisfactory: Yes Nausea and Vomiting Control Satisfactory: Yes Mental Status Recovered: Yes Vital Signs: Last Vital Signs Temp 36.3 C 04/15/20 11:55 Pulse 71 04/15/20 13:30 Resp 16 04/15/20 13:30 BP 112/56 L 04/15/20 13:30 Pulse Ox 94 L 04/15/20 13:30
[2020-04-15 15:45] VITALS: BP 117/61; PULSE 73
--- NOTE | 2020-05-17 07:55 | OR ---
DATE OF OPERATION: 04/15/2020 SURGEON: Beto Vasquez MD OPERATION PERFORMED: Left total knee arthroplasty. PREOPERATIVE DIAGNOSIS: Left knee osteoarthrosis. POSTOPERATIVE DIAGNOSIS: Left knee osteoarthrosis. ANESTHESIA: Local MAC with spinal anesthesia. ANESTHESIA PROVIDER: Deborah Laboy. ASSISTANTS: Elayne Sanchez PA-C and Maira Lazo LPN. ESTIMATED BLOOD LOSS: 200 mL. COMPLICATIONS: None. CONDITION: Stable. IMPLANTS: 1. Nik size 3 press-fit CR femur. 2. [place] size 3 press-fit tibial base plate. 3. Nik size 3, 9 mm CS polyethylene insert. 4. Nik size 29 x 9 mm press-fit asymmetric patella. DESCRIPTION OF PROCEDURE: The patient was identified in the preop holding area. Proper site was marked and identified by the surgeon. The patient was taken back to the operating theater. After adequate anesthesia, the patient's left lower extremity had a nonsterile tourniquet applied and it was sterilely prepped and draped in the usual sterile fashion. OR time-out was performed. The patient received 2 g IV Ancef. At this time, the left lower extremity was exsanguinated. Tourniquet was insufflated to 300 mmHg. Standard medial parapatellar incision was made. Medial parapatellar arthrotomy was created. Deep fibers of the MCL were raised and anterior fat pad was resected. At this time, attention was turned to the patella. Patella measured a 23 and was resected to a 14 for a 29 x 9 mm patella. Drill holes were then drilled and found to be in adequate position. The drill was then drilled in the distal femur and the intramedullary distal femoral cutting guide was then placed. 8 mm was resected off the distal femur and was found to be an adequate resection. Sizing guide was placed. It was found to be a size 3 press-fit CR femur that was shown on the implant record at the beginning of this dictation. The drill holes were drilled for the epicondylar axis using [place] line and epicondyles as reference. At this time, the 4-in-1 cutting block was placed. An anterior posterior and anterior and posterior chamfer cuts were then completed. Attention was turned to the tibia. The posterior medial lateral retractors were placed. The extramedullary tibial guide was placed. It was placed in the old footprint of the ACL. It was aligned with the center of the ankle and 0 degrees of slope, 9 mm was then resected off the unaffected side. There was found to be an acceptable reduction. At this time, posterior osteophytes were removed along with medial and lateral meniscus. A trial implant was placed with a correct sized tibia that was mentioned at the beginning of the dictation. A Nik size 3, 9 mm CS polyethylene insert was then placed. The patient's knee was brought through range of motion. The patella was tracking centrally and was stable to varus and valgus stress. Alignment was found to be roughly at 0 degrees. The tibia was stamped and drilled in proper rotation. The universal tibial base plate was impacted in place. Next, the [place] size 3 press-fit CR femur impacted into place and the Nik size 3, 9 mm CS polyethylene insert was placed. The patient's knee was brought into full extension. The patella was then press-fit in place at this time. Tourniquet was deflated. One liter Irrisept solution was irrigated through the knee along with 3 L of pulse lavage irrigation with Ancef. Periarticular injection was then completed. The patient's knee was brought through a range of motion. Knee was found to be stable to varus valgus stress, the patella was tracking centrally with full range of motion. At this time, a #2 barbed suture was used for closure of the medial parapatellar arthrotomy. Topical tranexamic acid was placed. 2-0 Vicryl was used subcutaneously, Prineo was used for the skin. The patient tolerated the procedure well and was sent to the PACU in stable condition. MMODAL /[id number] MTDD
== END 2020-04-15 15:12 | disposition home or self-care (01) ==
LOC: JD.SDS 07:40 → EDSTATUS 09:15 → JD.SDS 15:12
PROVIDERS: ATTEND Orthopaedic Surgery
DX: M17.12 Unilateral primary osteoarthritis, left knee (principal); J45.909 Unspecified asthma, uncomplicated; I10 Essential (primary) hypertension; E03.9 Hypothyroidism, unspecified; E66.01 Morbid (severe) obesity due to excess calories; G47.33 Obstructive sleep apnea (adult) (pediatric); E55.9 Vitamin D deficiency, unspecified; G89.18 Other acute postprocedural pain; Z91.013 Allergy to seafood; Z91.041 Radiographic dye allergy status; Z91.018 Allergy to other foods; Z79.899 Other long term (current) drug therapy; Z90.89 Acquired absence of other organs; Z98.890 Other specified postprocedural states; Z68.42 Body mass index [BMI] 45.0-49.9, adult
CPT/HCPCS: 27447; 73560; 87641; 94640; 97116; 97161; A9270; C1776; J0171; J0690; J0697; J1100; J1885; J2001; J2250; J2270; J2405; J2704; J2795; J3010; J3370; J3490; J7120; 01402; 64450

== ENCOUNTER 2021-01-27 20:37 | Emergency (ER) | payer BC ==
[2021-01-27] MEDS ORDERED: Ibuprofen 600 MG Tab PO ONE (20:51)
[2021-01-27 20:57] VITALS: BP 143/91; PULSE 58
--- NOTE | 2021-01-27 20:57 | EDM.PDOC ---
ED HPI GENERAL MEDICAL PROBLEM - General Chief Complaint: Trauma Stated Complaint: [facility] Time Seen by Provider: 01/27/21 20:37 Source of Information: Reports: Patient History Limitations: Reports: No Limitations - History of Present Illness INITIAL COMMENTS - FREE TEXT/NARRATIVE: A trauma alert was called for this patient. Mrs. Medina is a 60-year-old woman who is now brought to the ED by EMS after falling down 9 or 10 carpeted steps at home around 20:15 tonight. She states that she and her are moving out of their current residence, and that the lights were off. She missed a step, falling down headfirst. Her glasses were broken and she has some facial pain, and feels like one of her teeth may be a bit loose, as well. She denies loss of consciousness, and is able to explain everything that happened. She complained of some mild neck pain, likely muscular, therefore EMS placed a cervical collar and backboard. She states that she has fibromyalgia, and therefore has pain all over all the time, but, specifically, is complaining of left shoulder pain, along with right hip and knee pain. She states that she has undergone bilateral total knee arthroplasties, and is concerned that the bone around the arthroplasties may have been broken. EMS reported that the patient declined an offer by them for pain medication. Here in the ED, the patient's initial BP is found to be slightly elevated at 143/91, with slight bradycardia of 50 bpm. She is afebrile, saturating 100% on room air. She does not appear to be in acute distress - after she was removed from the backboard, she got on her phone and paid more attention to that than my questions. Prior to daisy's fall, the patient denies having a recent fever, chills, sore throat, ear pain, nasal or sinus congestion, cough, dyspnea, chest pain, palpitations, nausea, vomiting, constipation, diarrhea, abdominal pain, urinary symptoms, recent weight gain or weight loss, recent bloody bowel movements or black bowel movements, recent joint aches, headaches, or rashes. The patient's PCP is Estrella Rosas NP. Her Orthopedic Surgeon is Dr. Beto Vasquez. She has received 2 COVID vaccinations. Face/Facial Pain Score (Numeric/FACES): 5 Left Shoulder Pain Score (Numeric/FACES): 7 Right Hip Pain Score (Numeric/FACES): 6 - Related Data Allergies Allergy/AdvReac Type Severity Reaction Status Date / Time Iodinated Contrast Media Allergy Unknown Anaphylactic Verified 01/27/21 20:58 Shock iodine Allergy Anaphylactic Verified 01/27/21 20:58 Shock kiwi Allergy Rash Verified 01/27/21 20:58 shellfish derived Allergy Anaphylactic Verified 01/27/21 20:58 Shock Home Meds: Home Meds Cetirizine [ZyrTEC] 10 mg PO DAILY 07/17/18 [History] Levothyroxine 112 mcg PO DAILY 07/17/18 [History] Nebivolol [Bystolic] 5 mg PO DAILY 07/17/18 [History] Albuterol Sulfate 1 dose NEB Q4H PRN 10/05/19 [History] Albuterol [Proair HFA] 1 - 2 puff INH Q4H PRN 10/05/19 [History] Cholecalciferol (Vitamin D3) [Vitamin D3] 5,000 unit PO DAILY 10/05/19 [History] FLUoxetine HCl [Fluoxetine HCl] 60 mg PO DAILY 10/05/19 [History] Furosemide 20 mg PO DAILY PRN 10/05/19 [History] Spironolact/Hydrochlorothiazid [Spironolactone-HCTZ 25-25] 1 tab PO DAILY 10/05/19 [History] Umeclidinium Brm/Vilanterol Tr [Anoro Ellipta 62.5-25 MCG] 1 puff INH DAILY 10/05/19 [History] Allopurinol [Zyloprim] 300 mg PO DAILY 04/14/20 [History] Aspirin [Aspirin EC] 325 mg PO BID #84 tab 04/14/20 [Rx] Cyclobenzaprine [Flexeril] 10 mg PO BID PRN #20 tab 04/14/20 [Rx] Mupirocin Calcium [Mupirocin] 1 dose TOP TID PRN 04/14/20 [History] Potassium Gluconate [Potassium] 99 mg PO DAILY 04/14/20 [History] oxyCODONE 5 - 10 mg PO Q4H PRN #60 tab 04/14/20 [Rx] Past Medical History HEENT History: Reports: Allergic Rhinitis, Impaired Vision Cardiovascular History: Reports: Hypertension Respiratory History: Reports: Asthma (untreated), Sleep Apnea (noncompliant with nightly CPAP) Genitourinary History: Reports: Renal Calculus Musculoskeletal History: Reports: Fracture (left femur), Osteoarthritis Psychiatric History: Reports: Depression, Other (See Below) (Fibromyalgia) Endocrine/Metabolic History: Reports: Hypothyroidism, Obesity/BMI 30+ - Past Surgical History HEENT Surgical History: Reports: Cataract Surgery (bilateral), Naso-Sinus Surgery, Oral Surgery (dental extractions + implants) GI Surgical History: Reports: Appendectomy Female Surgical History: Reports: Hysterectomy (partial) Musculoskeletal Surgical History: Reports: Knee Replacement (bilateral), ORIF (left femur + subsequent removal of hardware) Dermatological Surgical History: Reports: Other (See Below) Social & Family History - Tobacco Use Tobacco Use Status *Q: Never Tobacco User - Caffeine Use Caffeine Use: Reports: Coffee - Alcohol Use Alcohol Use History: Yes Alcohol Use Frequency: Rarely - Recreational Drug Use Recreational Drug Use: No - Living Situation & Occupation Living situation: Reports: , with Spouse 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 ED EXAM, GENERAL - Physical Exam Exam: See Below Exam Limited By: No Limitations General Appearance: Alert, WD/WN, No Apparent Distress Eye Exam: Bilateral Eye: EOMI, Normal Inspection Ears: Normal External Exam, Hearing Grossly Normal Nose: Normal Inspection Throat/Mouth: Normal Inspection, Normal Voice, No Airway Compromise, Other (scratch to left side of upper lip) Head: Atraumatic, Normocephalic Neck: Normal Inspection, Supple, Non-Tender, Full Range of Motion, Other (Cervical spine cleared clinically and cervical collar removed) Respiratory/Chest: No Respiratory Distress, Lungs Clear, Normal Breath Sounds, No Accessory Muscle Use, Chest Non-Tender Cardiovascular: Normal Peripheral Pulses, Regular Rate, Rhythm, No Gallop, No JVD, No Murmur, No Rub Peripheral Pulses: 3+: Radial (L), Radial (R) GI/Abdominal: Normal Bowel Sounds, Soft, Non-Tender, No Organomegaly, No Distention, No Abnormal Bruit, No Mass Back Exam: Normal Inspection, Full Range of Motion, NT Extremities: Normal Inspection, Normal Range of Motion, Non-Tender (bilteral hips and bilteral knees), No Pedal Edema, Normal Capillary Refill, Other (Left shoulder tenderness with painful ROM) Neurological: Alert, Oriented, CN II-XII Intact, Normal Cognition, No Motor/Sensory Deficits Psychiatric: Normal Affect Skin Exam: Warm, Dry, Intact, Normal Color, No Rash Course - Vital Signs Last Recorded V/S: Last Vital Signs Temp 36.1 C 01/27/21 20:47 Pulse 58 L 01/27/21 20:47 Resp 20 01/27/21 20:47 BP 143/91 H 01/27/21 20:47 Pulse Ox 100 01/27/21 20:47 - Orders/Labs/Meds Orders: Active Orders 24 hr Category Date Time Status Knee Min 4V Rt [CR] Stat Exams 01/27/21 21:35 Taken Shoulder Comp Lt [CR] Stat Exams 01/27/21 20:51 Taken Meds: Medications Discontinued Medications Generic Name Dose Route Start Last Admin Trade Name Parrish PRN Reason Stop Dose Admin Hydrocodone Bitart/Acetaminophen 2 tab 01/27/21 21:59 01/27/21 22:05 Acetaminophen/Hydrocodone 325-5 Mg Tab PO 01/27/21 22:00 2 tab ONETIME ONE Administration Ibuprofen 600 mg 01/27/21 20:51 01/27/21 21:08 Ibuprofen 600 Mg Tab PO 01/27/21 20:52 600 mg ONETIME ONE Administration - Re-Assessments/Exams Free Text/Narrative Re-Assessment/Exam: 01/27/21 20:52 EMS placed a cervical collar, however, I was able to clear the patient's cervical spine clinically, and removed the collar. She was removed from the backboard. Both of her hips and knees are nontender to palpation, and she has no pain to PROM of either hip or either knee. I have ordered x-rays of her left shoulder. I offered her some [place], but she prefers ibuprofen only at this time. 01/27/21 21:29 3-view radiographs of the left shoulder appear to be grossly unremarkable, with no fractures or dislocations seen. Formal read per the Radiologist pending. 01/27/21 21:36 X-ray results discussed with the patient and her . The patient wants me to perform x-rays of her knees. I explained that given her examination, a fracture is not suspected and therefore x-rays are not medically indicated, in my opinion, but I don't think she is interested in my opinion. 01/27/21 21:59 Notified by Adry BROWN that the patient would like some [place]. 2 tablets ordered. 01/27/21 22:12 Although the patient told me that she wanted both of her knees x-rayed, when it came time for her to get the x-rays, she told the Rv Service Technician that she wanted only her right knee x-rayed. 4-view radiographs of the right knee appear to demonstrate a total knee arth roplasty in appropriate position. No fractures or dislocations identified. Formal read per the Radiologist pending. 01/27/21 22:17 X-ray results discussed with the patient and her . We will see if we can get the patient up. 01/27/21 22:42 Notified by Adry BROWN that the patient was able to ambulate without apparent difficulty to the bathroom. 01/27/21 22:45 The patient was offered a prescription of some opioid pain reliever, however, she told me that she has some OxyContin at home, as well as ibuprofen. Departure - Departure Time of Disposition: 22:45 Disposition: Home, Self-Care 01 Condition: Good Clinical Impression: Fall down stairs, Left shoulder pain, Right knee pain, Right buttock pain - Discharge Information *PRESCRIPTION DRUG MONITORING PROGRAM REVIEWED*: Not Applicable *COPY OF PRESCRIPTION DRUG MONITORING REPORT IN PATIENT MICHELLE: Not Applicable Instructions: Acute Knee Pain, Adult, Orsw-et-Aoqu Referrals: Estrella Rosas NP [Primary Care Provider] - Beto Vasquez MD [Physician] - Forms: ED Department Discharge Additional Instructions: You were seen in the emergency room after falling down 9 or 10 steps, injuring your left shoulder, right buttock area, and right knee. Work-up in the ER included x-rays of your left shoulder and of your right knee. No broken bones or dislocations were identified. We recommend that you take [id number] ibuprofen as needed for discomfort. You may take some previously prescribed oxycodone as needed for pain not relieved by ibuprofen. If you take oxycodone, do not drive or operate heavy machinery for 12 hours afterwards. Oxycodone may cause constipation, so consider taking a stool softener. We recommend that you get plenty of rest tonight, then resume your usual activities in the morning, even though you will be sore. If your pain persists, please follow-up with your PCP, Estrella Rosas NP. If any other problems, please do not hesitate to return to the ER. Sepsis Event Note (ED) - Focused Exam Vital Signs: Vital Signs Temp Pulse Resp BP Pulse Ox 01/27/21 20:47 36.1 C 58 L 20 143/91 H 100 - My Orders Last 24 Hours: My Active Orders 01/27/21 20:51 Shoulder Comp Lt [CR] Stat 01/27/21 21:35 Knee Min 4V Rt [CR] Stat - Assessment/Plan Last 24 Hours: My Active Orders 01/27/21 20:51 Shoulder Comp Lt [CR] Stat 01/27/21 21:35 Knee Min 4V Rt [CR] Stat
[2021-01-27] MEDS ORDERED: Acetaminophen/HYDROcodone 325-5 MG Tab PO ONE (21:59)
--- NOTE | 2021-01-28 06:19 | CR ---
Right knee: 4 views of the right knee were obtained. Comparison: Prior right knee exam of 10/06/19. Knee and patellar prostheses are seen. Components are aligned. Underlying bony structures appear intact. No acute fracture, dislocation or other bony abnormality is appreciated. Impression: 1. Satisfactory position of knee and patellar prostheses. 2. No acute bony abnormality is appreciated. Diagnostic code #2
--- NOTE | 2021-01-28 06:20 | CR ---
Left shoulder: 3 views of the left shoulder were obtained. Comparison: No prior left shoulder study is available. Acromioclavicular joint and glenohumeral joint appear within normal limits. No fracture, dislocation or other bony abnormality is appreciated. Impression: 1. Nothing acute is seen on 3-view left shoulder study. Diagnostic code #2
== END 2021-01-27 22:55 | disposition home or self-care (01) ==
LOC: JD.ED 20:37
DX: M25.512 Pain in left shoulder (principal); M25.561 Pain in right knee; M54.5 Low back pain; I10 Essential (primary) hypertension; E03.9 Hypothyroidism, unspecified; Z79.82 Long term (current) use of aspirin; Z79.899 Other long term (current) drug therapy; Z91.018 Allergy to other foods; Z91.041 Radiographic dye allergy status; Z91.013 Allergy to seafood; Z88.8 Allergy status to other drugs, medicaments and biological substances; W10.8XXA Fall (on) (from) other stairs and steps, initial encounter
CPT/HCPCS: 73030; 73564; 99284; A9270

== ENCOUNTER 2023-02-21 08:17 | Emergency (ER) | payer BC ==
[2023-02-21 08:55] LABS: BASOPHILS ABSOLUTE AUTO 0.1 K/mm3 (0.0-0.2); BASOPHILS PERCENT AUTO 0.4 % (0.0-1.0); EOSINOPHILS ABSOLUTE AUTO 0.1 K/mm3 (0.0-0.4); EOSINOPHILS PERCENT AUTO 0.6 % (0.0-6.0); HEMATOCRIT 43.1 % (37.0-47.0); IMMATURE GRAN ABSOLUTE AUTO 0.14 K/mm3 (0.00-0.05); IMMATURE GRAN PERCENT AUTO 0.6 % (0.0-0.4); LYMPHOCYTES PERCENT AUTO 8.6 % (24.0-44.0); MEAN CORPUSCULAR HEMOGLOBIN 28.2 pg (28.0-32.0); MEAN CORPUSCULAR HGB CONC 32.5 g/dl (32.0-36.0); MEAN CORPUSCULAR VOLUME 86.7 fl (83.0-99.0); MEAN PLATELET VOLUME 9.4 fl (9.4-12.3); MONOCYTES ABSOLUTE AUTO 1.5 K/mm3 (0.0-0.8); MONOCYTES PERCENT AUTO 6.6 % (0.0-8.0); NEUTROPHILS PERCENT AUTO 83.2 % (41.0-71.0); PLATELET COUNT,PLT 256 K/mm3 (150-400); RED BLOOD CELL COUNT 4.97 M/mm3 (4.10-5.30); WHITE BLOOD CELL COUNT,WBC 22.81 K/mm3 (3.9-11.3)
[2023-02-21 09:14] LABS: A/G RATIO 0.7 (1-2); ALBUMIN 3.4 g/dl (3.4-5.0); ANION GAP 13.9 (5-15); BILIRUBIN TOTAL 1.7 mg/dL (0.2-1.0); BUN/CREATININE RATIO 16.9 (14-18); CREATININE 1.3 mg/dL (0.55-1.02); EST CRCL DRUG DOSING (CG) 39.24 mL/min; POTASSIUM,K 3.9 mEq/L (3.5-5.1)
[2023-02-21 09:20] LABS: CALCIUM 9.3 mg/dL (8.5-10.1)
[2023-02-21] MEDS ORDERED: diphenhydrAMINE 50 MG/ML SDV IVPUSH ONE ×2 (09:35→10:34)
[2023-02-21] MEDS ORDERED: methylPREDNISolone Sod Succ 125 MG in Sodium Chloride 0.9% 250 ML IV ONE (09:35)
[2023-02-21] MEDS ORDERED: Iopamidol 755 Mg/ML 100 ML Bottle IVPUSH ONE (09:40)
[2023-02-21] MEDS ORDERED: Sodium Chloride 0.9% 10 ML Syringe FLUSH PRN (09:40)
[2023-02-21] MEDS ORDERED: Sodium Chloride 0.9% 100 ML IV SCH (09:45)
[2023-02-21] MEDS ORDERED: methylPREDNISolone Sodium Succinate 125 MG/2 ML SDV IVPUSH ONE (09:45)
[2023-02-21] MEDS ORDERED: diphenhydrAMINE 50 MG/ML SDV ONE (10:35)
[2023-02-21] MEDS ORDERED: Azithromycin 500 MG in Sodium Chloride 0.9% 250 ML IV ONE (11:16)
[2023-02-21] MEDS ORDERED: cefTRIAXone 2 GM in Sodium Chloride 0.9% 100 ML IV ONE (11:16)
[2023-02-21] MEDS ORDERED: Ketorolac 30 MG/ML SDV IVPUSH ONE (13:59)
[2023-02-21 15:14] VITALS: BP 130/74; PULSE 74
== END 2023-02-21 15:08 | disposition home or self-care (01) ==
LOC: JD.ED 08:17
DX: J18.9 Pneumonia, unspecified organism (principal); I10 Essential (primary) hypertension; J45.909 Unspecified asthma, uncomplicated; E03.9 Hypothyroidism, unspecified; M19.90 Unspecified osteoarthritis, unspecified site; E66.9 Obesity, unspecified; Z68.43 Body mass index [BMI] 50.0-59.9, adult; Z91.041 Radiographic dye allergy status; Z91.013 Allergy to seafood; Z91.018 Allergy to other foods; Z79.899 Other long term (current) drug therapy; Z79.82 Long term (current) use of aspirin
CPT/HCPCS: 36415; 71045; 71275; 80053; 84484; 85025; 85379; 87040; 93005; 96365; 96367; 96375; 96376; 99285; J0456; J0696; J1200; J1885; J2930; J3490; J7050; Q9967